=== PATIENT | female | born 2000 | race Caucasian/White ===

== ENCOUNTER 2022-10-30 19:18 | Emergency (ER) | payer OTHER, SELFPAY ==
[2022-10-30 19:46] VITALS: BP 121/89; PULSE 88; RESP 15; TEMP 36.6; O2SAT 100
--- NOTE | 2022-10-30 21:08 | ED.GENADULT ---
HPI - General Adult General Chief complaint: Wound/Laceration Stated complaint: l thumb lac Time Seen by Provider: 10/30/22 20:57 History of Present Illness HPI narrative: 22-year-old female presented the emergency department for evaluation of a laceration to her thumb. Patient reports that she was attempting to open a knife when she accidentally created a flap laceration to her left thumb. Patient's tetanus was not up-to-date. Related Data Allergies Allergy/AdvReac Type Severity Reaction Status Date / Time latex Allergy Hives Verified 10/30/22 19:20 Review of Systems Review of Systems: All systems reviewed & are unremarkable except as noted in HPI and below Exam Narrative: APPEARANCE: Well appearing, no pain, no distress, well-nourished. HEAD: normocephalic, atraumatic. EYES: PERRLA/EOMI, conjunctivae clear. NOSE: Normal no drainage NEURO: Alert. Cranial nerves II through XII intact. Grossly intact SKIN: Flap laceration to left thumb Course Course Emergency Course: 22-year-old female presented the ED for evaluation of a laceration to her left thumb. No evidence of tendon or arterial injury. Laceration was repaired as described above and tetanus was updated. Vital Signs Vital signs: Vital Signs Temperature 97.9 F 10/30/22 19:46 Pulse Rate 88 10/30/22 19:46 Respiratory Rate 15 10/30/22 19:46 Blood Pressure 121/89 10/30/22 19:46 Pulse Oximetry 100 10/30/22 19:46 Oxygen Delivery Room Air 10/30/22 19:46 Temperature 97.9 F 10/30/22 19:46 Pulse Rate 80 10/30/22 21:57 Respiratory Rate 16 10/30/22 21:57 Blood Pressure 120/74 10/30/22 21:57 Pulse Oximetry 100 10/30/22 21:57 Oxygen Delivery Room Air 10/30/22 19:46 Procedures Laceration Laceration 1: Site: upper extremity Side (If applicable): right Size (cm): 2 Description: flap and irregular Depth: simple, single layer Local Anesthetic: lidocaine 1% Amount of anesthesia used (mL): 2 Pre-repair: wound explored, irrigated and irrigated extensively ====== Skin Level ====== Skin layer closed with: prolene Size (cm): 5-0 Number of sutures: 3 Technique: simple, interrupted ====== Subcutaneous Layer ====== ====== Muscle Layer ====== ====== Tendon Layer ====== Medical Decision Making Differential Diagnosis Differential Diagnosis: laceration, tendon injury. Arterial injury Vital Signs Vital Signs: Vital Signs Temperature 97.9 F 10/30/22 19:46 Pulse Rate 88 10/30/22 19:46 Respiratory Rate 15 10/30/22 19:46 Blood Pressure 121/89 10/30/22 19:46 Pulse Oximetry 100 10/30/22 19:46 Oxygen Delivery Room Air 10/30/22 19:46 Temperature 97.9 F 10/30/22 19:46 Pulse Rate 80 10/30/22 21:57 Respiratory Rate 16 10/30/22 21:57 Blood Pressure 120/74 10/30/22 21:57 Pulse Oximetry 100 10/30/22 21:57 Oxygen Delivery Room Air 10/30/22 19:46 Discharge Plan Discharge Clinical Impression: Laceration Patient Disposition: Home, Self-Care Condition: Stable Instructions: Antibiotic Form, Laceration (ED) Additional Instructions: Sutures need to be removed in 7 to 10 days. Wound care as directed. Have close follow-up with your primary care physician. Follow-up/Referrals: PHYSICIAN NOT ON STAFF,NONSTAFF [Primary Care Provider] -
[2022-10-30] MEDS: TETANUS,DIPHTHERIA,AC PERTUSSIS ADULT (0.5 ML) BOOSTRIX IM (21:48)
[2022-10-30] MEDS: LIDOCAINE HCL 1% LOCAL INJ 10 ML VIAL INFILTRATE (21:48)
[2022-10-30 21:57] VITALS: BP 120/74; PULSE 80; RESP 16; O2SAT 100
== END 2022-10-30 21:58 | disposition home or self-care (01) ==
PROVIDERS: Emergency Provider Emergency Medicine
DX: S61.012A Laceration without foreign body of left thumb without damage to nail, initial encounter (principal); W26.0XXA Contact with knife, initial encounter; Z23 Encounter for immunization
CPT/HCPCS: 12001; 90471; 90715; 99282

== ENCOUNTER 2024-09-08 12:44 | Outpatient (CLI) | payer OTHER, SELFPAY ==
--- OUTSIDE RECORDS SUMMARY | 2024-09-08 12:53 | XMS_ITS | Clinical Summary ---
Author Organization [facility] Address [address] [place] [address] Care Team Providers Care Senior Medical Technologist Name Role Phone Unknown, Notinfile Primary Care Provider Unavail able Mariela Mcintyre MD Unavailable [phone] Norris Palumbo MD Unavailable [phone] Allergies Active Allergy Reactions Criticality Noted Date Comments Latex Blisters High Nickel Rash Medium 08/13/2017 Medications ibuprofen (ADVIL,MOTRIN) 600 mg tablet every 6 hours. 6 Active acetaminophen (TYLENOL) 500 mg tablet Take 500 mg by mouth every 6 (six) hours as needed for pain Active Dasetta , 28, 0.5/0.75/1 mg- 35 mcg per tablet Take 1 tablet by mouth daily 1 Active oxyCODONE (ROXICODONE) 5 mg immediate release tabletIndicatio ns:Pain Take 1 tablet (5 mg total) by mouth every 4 (four) hours as needed for pain (for pain uncontrolled after taking tylenol and ibuprofen) 18 tablet 1 Active Additional Information Patient not taking.Reported on 07/16/2021 FLUoxetine (PROzac) 20 mg capsule Take by mouth daily 2 Active topiramate (TOPAMAX) 50 mg tablet Take 50 mg by mouth 2 (two) times a day 2 Active triamcinolone (KENALOG) 0.1 % creamIndication s:Hand, foot and mouth disease Apply to affected area 1-2 times daily as needed. Avoid face and groin. 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 Pain in extremity 07/15/2014 Arachnoid cyst 11/06/2011 Surgical History Surgery Date Site/Laterality Comments SACROILIAC JOINT INJECTION PATIENT HAD CORTIZONE @ L5-S1 DEROTATIONAL TIBIAL OSTEOTOMY 04/25/2015 HARDWARE REMOVAL 02/27/2016 02/27/16 repair of femoral shaft nonunion, removal of broken hardware right femur, 09/17/16 removal of screw, 08/01/17 femoral nail removal MYRINGOTOMY W/ TUBES OSH Medical History Medical History Date Comments Painful orthopaedic hardware Arachnoid cyst found incidental ly on head CT after headaches and syncopal episodes 07/20, seen by neurology, no further f/u needed Family History Medical History Relation Name Comments Arthritis Mother Family history of arthritis - (Added by TW Conv) Hip Problems Mother Hip problem - ( Added by TW Conv) Low Back Pain Mother Family history of low back pain - (Added by TW Conv) Relation Name Status Comments Mother Social History Tobacco Use Types Packs/Day Years Used Date Smoking Tobacco: Never Smokeless Tobacco: Never Comments No Sex and Gender Information Value Date Recorded Sex Assigned at Not on file Legal Sex Female 4:56 AM PRINCIPAL ACCOUNT CLERK Gender Identity Female 05/01/2018 10:26 AM PRINCIPAL ACCOUNT CLERK Sexual Orientation Not on file Obstetrics History Last Filed Vital Signs Vital Sign Reading Time Taken Comments Blood Pressure 114/60 05/11/2022 9:28 AM PRINCIPAL ACCOUNT CLERK Pulse 68 05/11/2022 9:28 AM PRINCIPAL ACCOUNT CLERK Temperature 36.7 C (98.1 F) 05/11/2022 9:28 AM PRINCIPAL ACCOUNT CLERK Respiratory Rate 20 05/11/2022 9:28 AM PRINCIPAL ACCOUNT CLERK Oxygen Saturation 99% 05/11/2022 9:28 AM PRINCIPAL ACCOUNT CLERK Inhaled Oxygen Concentration - - Weight 73 kg (161 lb) 05/11/2022 9:28 AM PRINCIPAL ACCOUNT CLERK Height 160 cm (5' 3) 05/11/2022 9:28 AM PRINCIPAL ACCOUNT CLERK Body Mass Index 28.52 05/11/2022 9:28 AM PRINCIPAL ACCOUNT CLERK Plan of Treatment Health Maintenance Due Date Last Done Comments Cervical Cancer Screening 1999 Depression Screening 1999 Hepatitis C Screening 1999 Varicella Vaccines (1 of 2 - 13+ 2-dose series) 07/11/2012 HPV Vaccines (1 - 3-dose series) 07/11/2014 Regular Well Visit/Exam 18-64 07/11/2017 Covid-19 Vaccine ( season) 2023 08/12/2020, 07/22/2020 Influenza Vaccine (Season Ended) 2024 04/08/2022, 12/19/2019, 02/25/2019, Additional history exists DTaP/Tdap/Td Vaccine (8 - Td or Tdap) 04/14/2034 04/14/2024, 12/23/2012, 10/05/2004, Additional history exists Hepatitis B Screening Completed 04/02/2001 , 1999, 1999 Pneumococcal vaccine <65 Aged Out No longer eligible based on patient's age to complete this topic Insurance [facility] CHO[facility] PLUS [facility] CHO[facility] [place] CHOICE [place] Advance Directives For more information, please contact: [phone] Documents on File Type Date Recorded Patient Forensic Accountant Expl anation ADVANCE DIRECTIVE 08/18/2020 8:08 AM ADVANCE DIRECTIVE 02/27/2018 3:21 PM ADVANCE DIRECTIVE 08/01/2017 12:45 PM ADVANCE DIRECTIVE 08/01/2017 Advance Di rective Checklist Care Teams Senior Medical Technologist Relationship Specialty Start Date End Date Unknown, Notinfile PCP - General 05/01/24 Mariela Mcintyre MD [address] [place] [id number] 05/01/24 Norris Palumbo MD [address] [address] Surgeon Orthopedic Surgery 08/18/20
--- OUTSIDE RECORDS SUMMARY | 2024-09-08 12:53 | XMS_ITS | Referral Summary ---
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 Pain in extremity 07/15/2014 Arachnoid cyst 11/06/2011 Social History Tobacco Use Types Packs/Day Years Used Date Smoking Tobacco: Never Smokeless Tobacco: Never Comments No Sex and Gender Information Value Date Recorded Sex Assigned at Not on file Legal Sex Female 4:56 AM PARTS EXPEDITER Gender Identity Female 05/01/2018 10:26 AM PARTS EXPEDITER Sexual Orientation Not on file Last Filed Vital Signs Vital Sign Reading Time Taken Comments Blood Pressure 114/60 05/11/2022 9:28 AM PARTS EXPEDITER Pulse 68 05/11/2022 9:28 AM PARTS EXPEDITER Temperature 36.7 C (98.1 F) 05/11/2022 9:28 AM PARTS EXPEDITER Respiratory Rate 20 05/11/2022 9:28 AM PARTS EXPEDITER Oxygen Saturation 99% 05/11/2022 9:28 AM PARTS EXPEDITER Inhaled Oxygen Concentration - - Weight 73 kg (161 lb) 05/11/2022 9:28 AM PARTS EXPEDITER Height 160 cm (5' 3) 05/11/2022 9:28 AM PARTS EXPEDITER Body Mass Index 28.52 05/11/2022 9:28 AM PARTS EXPEDITER Plan of Treatment Not on file Insurance [facility] CHO[facility] PLUS [facility] CHOICE PLUS CHOICE [place] [facility] Advance Directives For more information, please contact: [phone] Documents on File Type Date Recorded Patient Affirmative Action Specialist Expl anation ADVANCE DIRECTIVE 08/18/2020 8:08 AM ADVANCE DIRECTIVE 02/27/2018 3:21 PM ADVANCE DIRECTIVE 08/01/2017 12:45 PM ADVANCE DIRECTIVE 08/01/2017 Advance Di rective Checklist Care Teams Rollout Manager Relationship Specialty Start Date End Date Unknown, Notinfile PCP - General 05/01/24 Mariela Mcintyre MD [address] [place] [address] 05/01/24 Norris Palumbo MD [address] [address] Surgeon Orthopedic Surgery 08/18/20
--- OUTSIDE RECORDS SUMMARY | 2024-09-08 12:53 | XMS_ITS | Encounter Summary ---
Author Organization [facility] Address [address] [place] [address] Care Team Providers Care Continuing Education Director Name Role Phone Mariela Mcintyre MD Primary Care Provider [phone] MD Primary Care Provider + Encounter Details Date Type Department Care Team (Late Contact Info) Description 08/16/[address] 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 Gender Identity Female 06/04/2024 9:31 AM CDT Sexual Orientation Not on file documented as of this encounter Plan of Treatment Upcoming Encounters Date Type Department Care Team (Late Contact Info) Description 10/06/2024 9:00 AM CDT Office Visit [facility] Medical [facility] Multispecialty Care - [address], [address] [place] [phone] Victor Hugo Watkins MD [address] [place] [address] documented as of this encounter Visit Diagnoses Not on filedocumented in this encounter Care Teams Continuing Education Director Relationship Specialty Start Date End Date Mariela Mcintyre MD [address] [place] [address] PCP - General PEDIATRICS 09/15/18 04/13/[address] MD [address] [place] [address] PCP - General FAMILY PRACTICE 04/14/24 documented as of this encounter
--- OUTSIDE RECORDS SUMMARY | 2024-09-08 12:53 | XMS_ITS | Encounter Summary ---
Author Organization [facility] Address [address] [place] [address] Care Team Providers Care Service Agent Name Role Phone Devora Lane MD Primary Care Provider + Encounter Details Date Type Department Care Team (Latest Contact Info) Description 08/06/2024 Results Follow-Up [facility] Medical Group Family Medicine - [place] [address] [place] [address] MD [address] [place] [address] COMPREHENSIVE METABOLIC PANEL Social History Tobacco Use Types Packs/Day Years Used Date Smoking Tobacco: Never Passive Smoke Exposure: Never Smokeless Tobacco: Never Alcohol Use Standard Drinks/Week Comments Yes 0 (1 standard drink = 0.6 oz pur e alcohol) 2 drinks a month B1300 Health Literacy Answer Date Recor ded How often do you need to hav e someone help you when you read instructions, pamphlets, or other written material from your doctor or pharmacy? Never 06/04/2024 [facility] Utilities Answer Date Recorded In the past 12 months has e electric, gas, oil, or water company threatened to shut off services in your home? No 06/04/2024 Humiliation, Afraid, Rape, and Kick questionnair e Answer Date Recorded Within the last year, have y ou been afraid of your partner or ex-partner? No 06/04/2024 Within the last year, have y ou been humiliated or emotionally abused in other ways by your partner or ex-partner? No Within the last year, have y ou been kicked, hit, slapped, or otherwise physically hurt by your partner or ex-partner? No 06/04/2024 Within the last year, have y ou been raped or forced to have any kind of sexual activity by your partner or ex-partner? No 06/04/2024 Social Connection and Isolation Panel [NHANES] A nswer Date Recorded In a typical week, how many times do you talk on the phone with family, friends, or neighbors? Patient declined 06/04/2024 How often do you get togethe r with friends or relatives? Patient declined 06/04/2024 How often do you attend jainism or tenriism serv ices? Patient declined 06/04/2024 Do you belong to any clubs o r organizations such as jainism groups, unions, fraternal or athletic groups, or school groups? Patient declined 06/04/2024 How often do you attend meet ings of the clubs or organizations you belong to? Patient declined 06/04/2024 Are you , , di vorced, , never , or living with a partner? Patient declined 06/04/2024 AUDIT-C Answer Date Recorded Q1: How often do you have a drink containing alc ohol? Monthly or less 06/04/2024 Q2: How many drinks containi ng alcohol do you have on a typical day when you are drinking? 1 or 2 06/04/2024 Q3: How often do you have si x or more drinks on one occasion? Less than monthly 06/04/2024 Overall Financial Resource Strain (CARDIA) Answe r Date Recorded How hard is it for you to pa y for the very basics like food, housing, medical care, and heating? Not very hard 06/04/2024 PHQ-2 Answer Date Recorded Patient Health Questionnaire-2 Score 0 04/14/2024 [facility] Occupat ional Health - Occupational Stress Questionnaire Answer Date Recorded Do you feel stress - tense, restless, nervous, or anxious, or unable to sleep at night because your mind is troubled all the time - these days? Patient declined 06/04/2024 Exercise Vital Sign Answer Date Recorde d On average, how many days pe r week do you engage in moderate to strenuous exercise (like a brisk walk)? 3 days 06/04/2024 On average, how many minutes do you engage in exercise at this level? 30 min 06/04/2024 Hunger Vital Sign Answer Date Recorded Within the past 12 months, y ou worried that your food would run out before you got the money to buy more. Patient declined Within the past 12 months, t he food you bought just didn't last and you didn't have money to get more. Patient declined PRAPARE - Transportation Answer Date Re corded In the past 12 months, has l ack of transportation kept you from medical appointments or from getting medications? No 05/10 In the past 12 months, has l ack of transportation kept you from meetings, work, or from getting things needed for daily living? No 06/04/2024 Housing Stability Vital Sign Answer Zan e Recorded In the last 12 months, was t here a time when you were not able to pay the mortgage or rent on time? No 06/04/2024 In the past 12 months, how m any times have you moved where you were living? 0 06/04/2024 At any time in the past 12 m [facility], were you homeless or living in a residential (including now)? No 06/04/2024 Comments No Sex and Gender Information Value Date Recorded Sex Assigned at Female 06/03/2024 11:56 AM CDT Legal Sex Female 9:15 PM INTEGRATION SPECIALIST Gender Identity Female 06/04/2024 9:31 AM CDT Sexual Orientation Not on file documented as of this encounter Functional Status * Are you deaf or do you have serious difficulty hearing Answer Date of Assessment Author Status No 06/03/2024 9:00 PM CDT Berto Hackett RN Active * Are you blind or do you have serious difficulty seeing, even when wearing glasses? Answer Date of Assessment Author Status No 06/03/2024 9:00 PM CDT Berto Hackett RN Active * Do you have serious difficulty walking or climbing stairs? Answer Date of Assessment Author Status No 06/03/2024 9:00 PM CDT Berto Hackett RN Active * Do you have difficulty dressing or bathing? Answer Date of Assessment Author Status No 06/03/2024 9:00 PM CDT Berto Hackett RN Active * Because of a physical, mental, or emotional condition, do you have difficulty doing errands alone such as visiting a doctor's office or shopping? Answer Date of Assessment Author Status No 06/03/2024 9:00 PM CDT Berto Hackett RN Active documented as of this encounter Mental Status * Because of a physical, mental, or emotional condition, do you have serious difficulty concentrating, remembering, or making decisions? Answer Entry Date Author Status No 06/03/2024 9:00 PM CDT Berto Hackett RN Active documented in this encounter Plan of Treatment Upcoming Encounters Date Type Department Care Team (Late st Contact Info) Description 10/06/2024 9:00 AM CDT Office Visit [facility] Medical Group Multispecialty Care - [facility] [address] [facility], [address] [place] [address] Victor Hugo Watkins MD [address] [place] [address] documented as of this encounter Visit Diagnoses Not on filedocumented in this encounter Care Teams Service Agent Relationship Specialty Start Date End Date Devora Lane MD [address] [place] [address] PCP - General FAMILY PRACTICE 04/14/24 documented as of this encounter
--- OUTSIDE RECORDS SUMMARY | 2024-09-08 12:53 | XMS_ITS | Encounter Summary ---
Author Organization [facility] Address [address] [place] [address] Care Team Providers Care Wastewater Treatment Plant Attendant Name Role Phone Devora Lane MD Primary Care Provider + Encounter Details Date Type Department Care Team (Late st Contact Info) Description 04/20/2024 MyChart Message Enc [facility] Medical Group Family Medicine - [place] [address] [place] [phone] MD [address] [place] [phone] Labs Ordered from Orthopedic Surgeon Social History Tobacco Use Types Packs/Day Years Used Date Smoking Tobacco: Never Passive Smoke Exposure: Never Smokeless Tobacco: Never Alcohol Use Standard Drinks/Week Comments Yes 0 (1 standard drink = 0.6 oz pur e alcohol) 2 drinks a month PHQ-2 Answer Date Recorded Patient Health Questionnaire-2 Score 0 04/14/2024 Comments No Sex and Gender Information Value Date Recorded Sex Assigned at Female 06/03/2024 11:56 AM CDT Legal Sex Female 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 RVISOR FEED HOUSE documented in this encounter Plan of Treatment Upcoming Encounters Date Type Department Care Team (Late st Contact Info) Description 10/06/2024 9:00 AM CDT Office Visit [facility] Medical Group Multispecialty Care - [facility] [address] [facility], [address] [place] [phone] Victor Hugo Watkins MD [address] [place] [address] documented as of this encounter Visit Diagnoses Not on filedocumented in this encounter Care Teams Wastewater Treatment Plant Attendant Relationship Specialty Start Date End Date Devora Lane MD [address] [place] [address] PCP - General FAMILY PRACTICE 04/14/24 documented as of this encounter
--- OUTSIDE RECORDS SUMMARY | 2024-09-08 12:53 | XMS_ITS | Encounter Summary ---
Author Organization [facility] Address [address] [place] [address] Care Team Providers Care Client Services Representative Name Role Phone Devora Lane MD Primary Care Provider + Encounter Details Date Type Department Care Team (Late st Contact Info) Description 07/17/2024 MyChart Message Enc [facility] Medical Group Family Medicine - [place] [address] [place] [phone] MD [address] [place] [phone] Follow up After ER Visit Social History Tobacco Use Types Packs/Day Years [...] from your doctor or pharmacy? Never 06/04/2024 [facility] Utilities Answer Date Recorded In the past 12 months has e [employer], gas, oil, or water [employer] threatened to shut off services in your [...] declined 06/04/2024 How often do you attend confucianism or tenriism serv ices? Patient declined 06/04/2024 Do you belong to any clubs o r organizations such as confucianism groups, unions, fraternal or athletic groups, or [...] Recorded Patient Health Questionnaire-2 Score 0 04/14/2024 [facility] of Occupat ional Health - Occupational Stress [...] any time in the past 12 m [facility], were you homeless or living in a long-term (including now)? No 06/04/2024 Comments No Sex and Gender Information Value Date Recorded Sex Assigned at Female 06/03/2024 11:56 AM CDT Legal Sex Female 9:15 PM TECHNOLOGY MANAGER Gender Identity Female 06/04/2024 9:31 AM CDT [...] Description 10/06/2024 9:00 AM CDT Office Visit [facility] Medical Group Multispecialty Care - [facility] [address] [facility], [address] [place] [address] Victor Hugo Watkins MD [address] [place] [address] documented as of this encounter Visit Diagnoses Not on filedocumented in this encounter Care Teams Client Services Representative Relationship Specialty Start Date End Date Devora Lane MD [address] [place] [address] PCP - General FAMILY PRACTICE 04/14/24 documented as of this encounter
--- OUTSIDE RECORDS SUMMARY | 2024-09-08 12:53 | XMS_ITS | Clinical Summary ---
Author Organization [facility] Address [facility] [place] [address] Care Team Providers Care Chemic Mangler Name Role Phone Devora Lane MD Primary Care Provider + Allergies Active Allergy Reactions Criticality Noted Date Comments Latex Hives 09/21/2022 Nickel Rash Medium 08/13/2017 Medications Vit-Fe Fumarate-FA ( VITAMIN OR) Take 1 tablet by mouth daily. 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 MIL is physical therapist. Migraines 04/14/2024 Overview (04/14/2024): Without aura. Seeing neurology but her neurologist is retiring.. About twice a month. Quilipta. Still deciding if its working. Topiramate and Nurtec were not effective for her in the past. Assessment & Plan (04/14/2024 3:46 PM CORDUROY CUTTER OPERATOR): Not controlled. Would like to see a new neurologist. Referral entered. Encounters Date Type Department Care Team Description 08/06/2024 Results Follow-Up [address] [place] [address] MD COMPREHENSIVE METABOLIC PANEL 07/21/2024 9:50 AM CDT Office Visit [address] [place] [address] MD Abdominal Pain (Patient was seen in [facility] ER on 07/16/24 for abdominal pain and was told to follow up here. ) 07/21/2024 Travel 07/17/2024 MyChart Message Enc [address] [place] [address] MD Follow up After ER Visit 07/16/2024 7:05 PM CDT - 07/16/2024 10:12 PM CDT Emergency [facility] [place] [address] Amna David PA Abdominal Pain Discharge Disposition: Home or Self Care (Routine Discharge) 07/16/2024 Travel 06/11/2024 11:10 AM CDT Office Visit [address] [place] [address] MD [facility] 06/11/2024 Travel from Last 3 Months Immunizations Immunization Administration Dates Next Due Afluria 36 MONTHS+ (Prefille d Syringe IIV4) 02/25/2019 Dtap (Acel-Immune) 10/05/2004, 2,03/27/2000,12/09,1999 HPV GARDASIL 9-VALENT 02/27/2021,12/22/2020,10/09 Hib-Hepatitis B (Comvax) 04/02/2001,1999,0 1999 Influenza Adult (Generic) 04/08/2022,12/2019,02/25/2019,02/09,12/18/2016 MENINGOCOCCAL A C Y&W-135 oligosaccharide (MENVEO) 10/12/2013 MMR (MMRII) 10/05/2004,04/02/2001 Meningococcal (Menactra) 10/26/2016 PFIZER COVID-19 (ORIGINAL FO RMULATION, PURPLE CAP) mRNA, LNP-S, PF, 30 MCG/0.3 ML DOSE 08/12/2020,07/22/2020 Polio IPV (Ipol) 10/05/2004, 2,1999,09/08 Tdap (Adacel) 04/14/2024 Tdap (Generic) 12/23/2012 Family History Medical History Relation Comments Cancer Father Non-hodgkins Lym phoma Hypertension Father Alcohol Abuse Maternal Grandfather Depression Mother Heart Disease Paternal Grandfather Cancer Paternal Grandmother Ovarian Can cer Relation Status Comments Brother 1 Alive Brother 2 Alive Brother 3 Alive Brother 4 Alive Father Alive Maternal Grandfather Mother Alive Paternal Grandfather Paternal Grandmother Sister Alive Social History Tobacco Use Types Packs/Day Years Used Date Smoking Tobacco: Never Passive Smoke Exposure: Never Smokeless Tobacco: Never Tobacco Cessation:Counseling Given: No Alcohol Use Standard Drinks/Week Comments Yes 0 (1 standard drink = 0.6 oz pur e alcohol) 2 drinks a month B1300 Health Literacy Answer Date Recor ded How often do you need to hav e someone help you when you read instructions, pamphlets, or other written material from your doctor or pharmacy? Never 06/04/2024 [facility] Utilities Answer Date Recorded In the past 12 months has e [employer], oil, or water [employer] threatened to shut off services in your [...] declined 06/04/2024 How often do you attend scientology or orthodoxy serv ices? Patient declined 06/04/2024 Do you belong to any clubs o r organizations such as scientology groups, unions, fraternal or athletic groups, or [...] Recorded Patient Health Questionnaire-2 Score 0 04/14/2024 [facility] - Occupational Stress [...] any time in the past 12 m [facility], were you homeless or living in a senior living (including now)? No 06/04/2024 Comments No Sex and Gender Information Value Date Recorded Sex Assigned at Female 06/03/2024 11:56 AM CDT Legal Sex Female 9:15 PM CORDUROY CUTTER OPERATOR Gender Identity Female 06/04/2024 9:31 AM CDT Sexual Orientation Not on file Last Filed Vital Signs Vital Sign Reading Time Taken Comments Blood Pressure 113/81 07/21/2024 9:53 AM CDT Pulse 93 07/21/2024 9:53 AM CDT Temperature 36.4 C (97.5 F) 07/21/2024 9:53 AM CDT Respiratory Rate 16 07/16/2024 10:10 PM CDT Oxygen Saturation 100% 07/21/2024 9:53 AM CDT Inhaled Oxygen Concentration - - Weight 75.8 kg (167 lb) 07/21/2024 9:53 AM CDT Height 160 cm (5' 3) 07/21/2024 9:53 AM CDT Body Mass Index 29.58 07/21/2024 9:53 AM CDT Plan of Treatment Upcoming Encounters Date Type Department Care Team (Late st Contact Info) Description 10/06/2024 9:00 AM CDT Office Visit [facility] Multispecialty Care - [address] [place] [address] Victor Hugo Watkins MD [address] [place] [address] Health Maintenance Due Date Last Done Comments Cervical Cancer Screening Pap Smear (Age 21 to 29) Every 3 Years 1999 Cervical Cancer Screening 1999 Hepatitis C 07/11/2017 HPV Vaccines (3 - 3-dose series) 05/22/2021 02/27/2021, 12/22/2020, 10/20/2020 COVID-19 Vaccine ( season) 2023 08/12/2020, 07/22/2020 Annual Physical 04/14/2025 04/14/2024 DTaP, Tdap and Td Vaccines (8 - Td or Tdap) 04/14/2034 04/14/2024, 12/23/2012, 10/05/2004, Additional history exists Hepatitis B Vaccines Completed 04/02/2001, 1999, 1999 Meningococcal Vaccine Completed 10/26/2016, 014 PHQ-2 (Physician Hernandez) Completed 04/14/2024 Meningococcal B Vaccine Aged Out No l onger eligible based on patient's age to complete this topic Pneumococcal Vaccine: Pediatrics (0 to 5 Years) and At-Risk Patients (6 to 49 Years) Aged Out No longer eligible based on patient's age to complete this topic RSV Immunizations Under 20 Months Aged Out No longer eligible based on patient's age to complete this topic Procedures Procedure Name Priority Date/Time Associated Diagnosis Comments COMPREHENSIVE METABOLIC PANEL Today 08/05/2024 10:41 AM CDT Elevated liver enzymes CT ABD+PEL W CON STAT 07/16/2024 9:02 PM CDT POCT URINE (BACK OFFICE) STAT 07/16/2024 7:16 PM CDT HC URINALYSIS AUTO W/O MICRO STAT 07/16/2024 7:14 PM CDT LIPASE STAT 07/16/2024 7:14 PM CDT COMPREHENSIVE METABOLIC PANEL STAT 07/16/2024 7:14 PM CDT CBC W/DIFF AUTOMATED STAT 07/16/2024 7:14 PM CDT from Last 3 Months Results * COMPREHENSIVE METABOLIC PANEL (08/05/2024 10:41 AM CDT) Only the most recent of2 resultswithin the time period is included. GLUCOSE 92 70 - 99 mg/dL [facility] BUN 11 6 - 20 mg/dL [facility] CREATININE S/P/B 0.77 0.57 - 1.00 mg/dL [facility] GFR ESTIMATE 110 >59 mL/min/1.7 3 [facility] 1 BUN CREATININE RATIO 14 9 - 23 [facility] 1 SODIUM S/P/B 137 134 - 144 mmol/L [facility] 1 POTASSIUM S/P/B 4.4 3.5 - 5.2 mmol/L [facility] 1 CHLORIDE S/P/B 102 96 - 106 mmol/L [facility] 1 CO2 21 20 - 29 mmol/L [facility] 1 CALCIUM S/P/B 9.7 8.7 - 10.2 mg/dL [facility] 1 TOTAL PROTEIN S/P/B 6.8 6.0 - 8.5 g/dL [facility] 1 ALBUMIN S/P/B 4.5 4.0 - 5.0 g/dL [facility] 1 GLOBULIN 2.3 1.5 - 4.5 g/dL [facility] 1 BILIRUBIN TOTAL S/P/B 0.7 0.0 - 1.2 mg/dL [facility] 1 ALKALINE PHOSPHATASE S/P/B 90 44 - 121 IU/L [facility] 1 AST 15 0 - 40 IU/L [facility] 1 ALT 12 0 - 32 IU/L [facility] 1 08/05/2024 10:4 1 AM CDT 08/05/2024 Narrative [facility] - 08/06/2024 1:06 AM CDT Performed at: 01 - [facility] [address], [place], [place] [id number] Surgical Assist: Franck Levine PhD, Phone: [phone] us Devora Lane MD LABORATORY Final Re sult [facility] [address] [place] [address] [facility] 1 * CT ABD+PEL W IV CON ONLY (07/16/2024 9:02 PM CDT) Anatomical Region Laterality Modality Abdomen Computed Tomogra phy 07/16/2024 9:02 PM CDT Impressions 07/16/2024 9:13 PM CDT IMPRESSION: 1. Appendectomy since the comparison exam. Referred By: Interpreted By: Simon Roque MD, 07/16/2024 9:02 PM Narrative 07/16/2024 9:13 PM CDT [facility] [address] [place], [place] [address] EXAM: CT ABD+PEL W CON DATE: 07/16/2024 COMPARISON: 06/03/2024 INDICATION: Stomach pain last night. Appendectomy after the prior CT. TECHNIQUE: Postcontrast imaging with 100 cc intravenous Isovue-370 left wrist. A dose lowering technique was used for this procedure, which may include, but is not limited to, dose reduction technique, automated exposure control, iterative reconstruction, ALARA (As Low As Reasonably Achievable), or Image Gently techniques. FINDINGS: Less than 4 mm pleural-based pulmonary nodule in the right middle lobe. No change. No follow-up necessary. Normal enhancement of the liver, spleen, adrenal glands, and pancreas. Partially contracted gallbladder is normal. Normal enhancement of the kidneys. No obstruction. Normal urinary bladder. Normal enhancement of the uterus. Multiple follicles in the ovaries. No free fluid. Normal appearance of the stomach and small bowel. Moderate stool volume in the right colon. Appendectomy changes. There are multiple lymph nodes in the right lower quadrant and mesentery. These have decreased in size and number. Minimal ill-defined densities in the fat lateral to the right psoas. No fluid collection. No acute bone findings. Partially visualized tract from a previous right femoral edelmira. Fixation screw remains. Procedure Note Simon Roque MD - 07/16/2024 [facility] [address] [place], [place] [address] EXAM: CT ABD+PEL W CON DATE: 07/16/2024 COMPARISON: 06/03/2024 INDICATION: Stomach pain last night. Appendectomy after the prior CT. TECHNIQUE: Postcontrast imaging with 100 cc intravenous Isovue-370 leftwrist. A dose lowering technique was used for this procedure, which may include,but is not limited to, dose reduction technique, automated exposurecontrol, iterative reconstruction, ALARA (As Low As ReasonablyAchievable), or Image Gently techniques. FINDINGS: Less than 4 mm pleural-based pulmonary nodule in the rightmiddle lobe. No change. No follow-up necessary. Normal enhancement of the liver, spleen, adrenal glands, and pancreas.Partially contracted gallbladder is normal. Normal enhancement of the kidneys. No obstruction. Normal urinarybladder. Normal enhancement of the uterus. Multiple follicles in theovaries. No free fluid. Normal appearance of the stomach and small bowel. Moderate stool volumein the right colon. Appendectomy changes. There are multiple lymph nodes in the right lower quadrant and mesentery.These have decreased in size and number. Minimal ill-defined densities inthe fat lateral to the right psoas. No fluid collection. No acute bone findings. Partially visualized tract from a previous rightfemoral edelmira. Fixation screw remains. IMPRESSION: 1. Appendectomy since the comparison exam. Referred By: Interpreted By: Simon Roque MD, 07/16/2024 9:[address] Final Result * POCT urine (07/16/2024 7:16 PM CDT) URINE HCG TEST NEGATIVE Internal Control: VALID 07/16/2024 7:16 PM CDT us Osman Crystal PA-C POINT OF CARE TEST ORDERABL ES Final Result * URINALYSIS (07/16/2024 7:14 PM CDT) SPECIMEN TYPE URINE CLEAN CATCH 07/16/2024 7:[address] [facility] COLOR (U) COLORLESS 07/16/2024 7:[address] [facility] TRANSPARENCY CLEAR 07/16/2024 7:[address] [facility] SPECIFIC GRAVITY (U) 1.009 1.001 - 1.030 07/16/2024 7:[address] [facility] U PH 7.0 5.0 - 9.0 07/16/2024 7:[address] [facility] LEUKOCYTES (U) NEGATIVE NEGATIVE 07/16/2024 7:[address] [facility] NITRITES NEGATIVE NEGATIVE 07/16/2024 7:[address] [facility] PROTEIN RANDOM (U) NEGATIVE <30 MG/DL 07/16/2024 7:[address] [facility] GLUCOSE (U) NORMAL NORMAL MG/DL 07/16/2024 7:[address] [facility] KETONES MG/DL (U) NEGATIVE NEGATIVE MG/DL 07/16/2024 7:[address] [facility] UROBILINOGEN NORMAL NORMAL MG/DL 07/16/2024 7:[address] [facility] BILIRUBIN (U) NEGATIVE NEGATIVE MG/DL 07/16/2024 7:[address] [facility] BLOOD (U) NEGATIVE NEGATIVE 07/16/2024 7:[address] [facility] URINE SPECIMEN OBTAINED BY CLEAN CATCH PROCEDURE / Unknown 07/16/2024 7:14 PM CDT us Osman Crystal PA-C URINE ORDERABLES Final Resu lt [facility] [address] [place] [address], * CBC W/DIFF AUTOMATED (07/16/2024 7:14 PM CDT) WBC 6.44 4.5 - 11.0 x10'3/uL 07/16/2024 7:[address] [facility] RBC 4.62 4.20 - 5.40 x10'6/uL 07/16/2024 7:[address] [facility] HGB 13.7 12.0 - 16.0 G/DL 07/16/2024 7:[address] [facility] HCT 40.6 38.0 - 48.0 % 07/16/2024 7:[address] [facility] MCV 87.9 81.0 - 99.0 FL 07/16/2024 7:[address] [facility] MCH 29.7 27.0 - 31.0 PG 07/16/2024 7:[address] [facility] MCHC 33.7 32.0 - 36.0 G/DL 07/16/2024 7:[address] [facility] RDW 12.4 11.5 - 14.5 % 07/16/2024 7:[address] [facility] PLT 313 130 - 400 x10'3/uL 07/16/2024 7:[address] [facility] MPV 9.3 9.3 - 12.2 FL 07/16/2024 7:[address] [facility] DIFFERENTIAL TYPE AUTOMATED DIFFERENTIAL 07/16/2024 7:[address] [facility] NEUTROPHILS % 47.3 % 07/16/2024 7:[address] [facility] LYMPHOCYTES % 42.4 % 07/16/2024 7:[address] [facility] MONOCYTES % 7.0 % 07/16/2024 7:[address] [facility] EOSINOPHILS 2.0 % 07/16/2024 7:[address] [facility] BASOPHILS 1.1 % 07/16/2024 7:[address] [facility] IMMATURE GRANS % 0.2 % 07/17/19 7:[address] [facility] ABS. NEUTROPHILS 3.05 1.80 - 7.70 x10'3/uL 07/16/2024 7:[address] [facility] ABS. LYMPHOCYTES 2.73 1.00 - 4.80 x10'3/uL 07/16/2024 7:[address] [facility] ABS. MONOCYTES 0.45 0.24 - 0.86 x10'3/uL 07/16/2024 7:[address] [facility] ABS. EOSINOPHILS 0.13 0.04 - 0.36 x10'3/uL 07/16/2024 7:[address] [facility] ABS. BASOPHILS 0.07 0.01 - 0.08 x10'3/uL 07/16/2024 7:[address] [facility] ABS. IMMATURE GRANULOCYTES 0.01 0.00 - 0.49 x10'3/uL 07/16/2024 7:[address] [facility] 07/16/2024 7:14 PM CDT Osman Crystal PA-C LABORATORY Final Resul t [facility] [address] [place] [address], [place] [phone] * LIPASE (07/16/2024 7:14 PM CDT) LIPASE 44 13 - 75 UNITS/L 07/16/2024 7:[address] [facility] 07/16/2024 7:14 PM CDT Osman Crystal PA-C LABORATORY Final Resul t Performing Organization Address City/[facility]/ZIP Co de Phone Number [facility] [address] [place] [address], [place] [phone] from Last [address] [id number] [facility] Advance Directives * Full Code (Latest Code Status on File) Date Activated Date Inactivated Comments 06/03/2024 7:26 PM 06/04/2024 12:29 PM Care Teams Chemic Mangler Relationship Specialty Start Date End Date Devora Lane MD [address] [place] [address] PCP - General FAMILY PRACTICE 04/14/24
[2024-09-08 14:38] LABS: Beta HCG Quantitative 21.33 mIU/ML
[2024-09-09 02:59] LABS: Progesterone. 20.4 ng/mL
== END 2024-09-08 12:45 | disposition home or self-care (01) ==
PROVIDERS: PCP Student in an Organized Health Care Education/Training Program; Visit Provider Obstetrics & Gynecology
DX: O09.299 Supervision of pregnancy with other poor reproductive or obstetric history, unspecified trimester (principal); Z3A.00 Weeks of gestation of pregnancy not specified
CPT/HCPCS: 36415; 84144; 84702

== ENCOUNTER 2024-09-10 12:53 | Outpatient (CLI) | payer OTHER, SELFPAY ==
--- OUTSIDE RECORDS SUMMARY | 2024-09-10 12:56 | XMS_ITS | Encounter Summary ---
Author Organization [facility] Address [address] [place] [address] Care Team Providers Care Greeting Card Editor Name Role Phone Mariela Mcintyre MD Primary Care Provider [phone] MD Primary Care Provider + Encounter Details Date Type Department Care Team (Late Contact Info) Description 08/16/[address] [facility] [address] [place] [address] , Generic Conversion, Social History Tobacco Use Types Packs/Day Years Used Date Smoking Tobacco: Never Assessed Comments Unknown Sex and Gender Information Value Date Recorded Sex Assigned at Female 06/03/2024 11:56 AM CDT Legal Sex Female 9:15 PM PLASMA CUTTING MACHINE OPERATOR Gender Identity Female 06/04/2024 9:31 AM CDT Sexual Orientation Not on file documented as of this encounter Plan of Treatment Upcoming Encounters Date Type Department Care Team (Late Contact Info) Description 10/06/2024 9:00 AM CDT Office Visit [facility] Medical Group Multispecialty Care - [address], [address] [place] [phone] Victor Hugo Watkins MD [address] [place] [phone] documented as of this encounter Visit Diagnoses Not on filedocumented in this encounter Care Teams Greeting Card Editor Relationship Specialty Start Date End Date Mariela Mcintyre MD [address] [place] [address] PCP - General PEDIATRICS 09/15/18 04/13/[address] MD [address] [place] [address] PCP - General FAMILY PRACTICE 04/14/24 documented as of this encounter
--- OUTSIDE RECORDS SUMMARY | 2024-09-10 12:57 | XMS_ITS | Clinical Summary ---
Author Organization [facility] Address [facility] [place] [address] Care Team Providers Care Helmet Coverer Name Role Phone Devora Lane MD Primary Care Provider + Allergies Active Allergy Reactions Criticality Noted Date Comments Latex Hives 09/21/2022 Nickel Rash Medium 08/13/2017 Medications Vit-Fe Fumarate-FA ( VITAMIN OR) Take 1 tablet by mouth daily. 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 MIL is physical therapist. Migraines 04/14/2024 Overview (04/14/2024): Without aura. Seeing neurology but her neurologist is retiring.. About twice a month. Quilipta. Still deciding if its working. Topiramate and Nurtec were not effective for her in the past. Assessment & Plan (04/14/2024 3:46 PM ENTERPRISE SOFTWARE ENGINEER): Not controlled. Would like to see a new neurologist. Referral entered. Encounters Date Type Department Care Team Description 08/06/2024 Results Follow-Up [address] [place] [address] MD COMPREHENSIVE METABOLIC PANEL 07/21/2024 9:50 AM CDT Office Visit [address] [place] [address] MD Abdominal Pain (Patient was seen in [facility] ER on 07/16/24 for abdominal pain and was told to follow up here. ) 07/21/2024 Travel 07/17/2024 MyChart Message Enc [address] [place] [address] MD Follow up After ER Visit 07/16/2024 7:05 PM CDT - 07/16/2024 10:12 PM CDT Emergency [facility] [place] [address] Amna David PA Abdominal Pain Discharge Disposition: Home or Self Care (Routine Discharge) 07/16/2024 Travel 06/11/2024 11:10 AM CDT Office Visit [address] [place] [address] MD [facility] 06/11/2024 Travel from Last 3 Months Immunizations [...] from your doctor or pharmacy? Never 06/04/2024 [facility] Utilities Answer Date Recorded In the past 12 months has e [employer], oil, or water [employer] threatened to shut off services in your [...] declined 06/04/2024 How often do you attend shinto or sikh serv ices? Patient declined 06/04/2024 Do you belong to any clubs o r organizations such as shinto groups, unions, fraternal or athletic groups, or [...] Recorded Patient Health Questionnaire-2 Score 0 04/14/2024 [facility] of Occupat ional Health - [...] any time in the past 12 m [facility], were you homeless or living in a fpc (including now)? No 06/04/2024 Comments No Sex and Gender Information Value Date Recorded Sex Assigned at Female 06/03/2024 11:56 AM CDT Legal Sex Female 9:15 PM ENTERPRISE SOFTWARE ENGINEER Gender Identity Female 06/04/2024 9:31 AM CDT [...] Description 10/06/2024 9:00 AM CDT Office Visit [facility] Medical Group Multispecialty Care - [address] [place] [address] Victor Hugo Watkins MD [address] [place] [address] Health Maintenance Due Date Last Done Comments [...] Meningococcal Vaccine Completed 10/26/2016, 014 PHQ-2 (Physician [place]) Completed 04/14/2024 Meningococcal B Vaccine Aged Out [...] AM CDT Performed at: 01 - [facility] [address], [place], [place] [id number] Distillation Operator: Franck Levine PhD, Phone: [phone] us Devora Lane MD LABORATORY Final Re sult [facility] [address] [place] [address] [facility] 1 * CT ABD+PEL W IV CON ONLY (07/16/2024 9:02 PM CDT) Anatomical Region Laterality Modality Abdomen Computed Tomogra phy 07/16/2024 9:02 PM CDT Impressions 07/16/2024 9:13 PM CDT IMPRESSION: 1. Appendectomy since the comparison exam. Referred By: Interpreted By: Simon Roque MD, 07/16/2024 9:02 PM Narrative 07/16/2024 9:13 PM CDT [facility] [address] [place], [place] [address] EXAM: CT ABD+PEL W CON DATE: 07/16/2024 [...] Procedure Note Simon Roque MD - 07/16/2024 [facility] [address] [place], [place] [address] EXAM: CT ABD+PEL W CON DATE: 07/16/2024 [...] URINE CLEAN CATCH 07/16/2024 7:16 PM CDT [facility] COLOR (U) COLORLESS 07/16/2024 7:57 PM CDT [facility] TRANSPARENCY CLEAR 07/16/2024 7:57 PM CDT [facility] SPECIFIC GRAVITY (U) 1.009 1.001 - 1.030 07/16/2024 7:57 PM CDT [facility] U PH 7.0 5.0 - 9.0 07/16/2024 7:57 PM CDT [facility] LEUKOCYTES (U) NEGATIVE NEGATIVE 07/16/2024 7:57 PM CDT [facility] NITRITES NEGATIVE NEGATIVE 07/16/2024 7:57 PM CDT [facility] PROTEIN RANDOM (U) NEGATIVE <30 MG/DL 07/16/2024 7:57 PM CDT [facility] GLUCOSE (U) NORMAL NORMAL MG/DL 07/16/2024 7:57 PM CDT [facility] KETONES MG/DL (U) NEGATIVE NEGATIVE MG/DL 07/16/2024 7:57 PM CDT [facility] UROBILINOGEN NORMAL NORMAL MG/DL 07/16/2024 7:57 PM CDT [facility] BILIRUBIN (U) NEGATIVE NEGATIVE MG/DL 07/16/2024 7:57 PM CDT [facility] BLOOD (U) NEGATIVE NEGATIVE 07/16/2024 7:57 PM CDT [facility] URINE SPECIMEN OBTAINED BY CLEAN CATCH PROCEDURE / Unknown 07/16/2024 7:14 PM CDT us Osman Crystal PA-C URINE ORDERABLES Final Resu lt [facility] [address] [place] [address], * CBC W/DIFF AUTOMATED (07/16/2024 7:14 PM CDT) WBC 6.44 4.5 - 11.0 x10'3/uL 07/16/2024 7:26 PM CDT [facility] RBC 4.62 4.20 - 5.40 x10'6/uL 07/16/2024 7:26 PM CDT [facility] HGB 13.7 12.0 - 16.0 G/DL 07/16/2024 7:26 PM CDT [facility] HCT 40.6 38.0 - 48.0 % 07/16/2024 7:26 PM CDT [facility] MCV 87.9 81.0 - 99.0 FL 07/16/2024 7:26 PM CDT [facility] MCH 29.7 27.0 - 31.0 PG 07/16/2024 7:26 PM CDT [facility] MCHC 33.7 32.0 - 36.0 G/DL 07/16/2024 7:26 PM CDT [facility] RDW 12.4 11.5 - 14.5 % 07/16/2024 7:26 PM CDT [facility] PLT 313 130 - 400 x10'3/uL 07/16/2024 7:26 PM CDT [facility] MPV 9.3 9.3 - 12.2 FL 07/16/2024 7:26 PM CDT [facility] DIFFERENTIAL TYPE AUTOMATED DIFFERENTIAL 07/16/2024 7:26 PM CDT [facility] NEUTROPHILS % 47.3 % 07/16/2024 7:26 PM CDT [facility] LYMPHOCYTES % 42.4 % 07/16/2024 7:26 PM CDT [facility] MONOCYTES % 7.0 % 07/16/2024 7:26 PM CDT [facility] EOSINOPHILS 2.0 % 07/16/2024 7:26 PM CDT [facility] BASOPHILS 1.1 % 07/16/2024 7:26 PM CDT [facility] IMMATURE GRANS % 0.2 % 07/17/19 7:26 PM CDT [facility] ABS. NEUTROPHILS 3.05 1.80 - 7.70 x10'3/uL 07/16/2024 7:26 PM CDT [facility] ABS. LYMPHOCYTES 2.73 1.00 - 4.80 x10'3/uL 07/16/2024 7:26 PM CDT [facility] ABS. MONOCYTES 0.45 0.24 - 0.86 x10'3/uL 07/16/2024 7:26 PM CDT [facility] ABS. EOSINOPHILS 0.13 0.04 - 0.36 x10'3/uL 07/16/2024 7:26 PM CDT [facility] ABS. BASOPHILS 0.07 0.01 - 0.08 x10'3/uL 07/16/2024 7:26 PM T [facility] ABS. IMMATURE GRANULOCYTES 0.01 0.00 - 0.49 x10'3/uL 07/16/2024 7:26 PM T [facility] 07/16/2024 7:14 PM CDT Osman Crystal PA-C LABORATORY Final Resul t [facility] [address] [place] [address], [place] [phone] * LIPASE (07/16/2024 7:14 PM CDT) LIPASE 44 13 - 75 UNITS/L 07/16/2024 7:47 PM CDT [facility] 07/16/2024 7:14 PM CDT Osman Crystal PA-C LABORATORY Final Resul t Performing Organization Address City/[facility]/ZIP Co de Phone Number [facility] [address] [place] [address], [place] [phone] from Last [address] [place] [address] [id number] [facility] Advance Directives * Full Code (Latest Code Status on File) Date Activated Date Inactivated Comments 06/03/2024 7:26 PM 06/04/2024 12:29 PM Care Teams Helmet Coverer Relationship Specialty Start Date End Date Devora Lane MD [address] [place] [address] PCP - General FAMILY PRACTICE 04/14/24
--- OUTSIDE RECORDS SUMMARY | 2024-09-10 12:57 | XMS_ITS | Encounter Summary ---
Author Organization [facility] Address [address] [place] [address] Care Team Providers Care Corrugator Operator Name Role Phone Devora Lane MD Primary Care Provider + Encounter Details Date Type Department Care Team (Latest Contact Info) Description 08/06/2024 Results Follow-Up [facility] Medical Group Family Medicine - [place] [address] [place] [address] MD [address] [place] [address] COMPREHENSIVE METABOLIC PANEL Social History Tobacco [...] from your doctor or pharmacy? Never 06/04/2024 [facility] Utilities Answer Date Recorded In [...] declined 06/04/2024 How often do you attend roman catholic or latter-day serv ices? Patient declined 06/04/2024 Do you belong to any clubs o r organizations such as roman catholic groups, unions, fraternal or athletic groups, or [...] Recorded Patient Health Questionnaire-2 Score 0 04/14/2024 [facility] of Occupat ional Health - Occupational Stress [...] any time in the past 12 m [facility], were you homeless or living in a mcfp (including now)? 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
--- OUTSIDE RECORDS SUMMARY | 2024-09-10 12:57 | XMS_ITS | Data Portability ---
Author Organization [facility], [address] [facility] ([place]) Address [address] [place] [address] Care Team Providers Care Talcer Name Role Phone [place] COPELAND Primary Care Provider [phone] Assessment Encounter Date Assessment Date Assessment LastModified by Organization Details LastModified Time 02/14/2024 02/14/2024 In summary, patient s migraines continue to be problematic for her and the topiramate does not appear to be effective. PLAN 1. I will taper patient off topiramate by 50 mg tablets twice a day ever two to three days. 2. Since patient did very well with Nurtec, I will try her on Qulipta 60 mg daily for preventive therapy and will also send a prescription in for the Nurtec. 3. Patient is aware that I will be retiring at the end of the year. Given the distance she lives from [place], she will talk to her primary care physician about finding a local neurologist for her. If that fails, I will be happy to have her follow up with one of my partners here. I asked her to give us a call in a couple of weeks to let us know how the medication changes are working for her and I can still help her in that time frame with adjustment. [email or web address] Not available 02/14/2024 12:17:47 Plan of Treatment Reminders Order Date Submit Date Provider Last Modified By Organization Details Last Modified Time Details Appointments None recorded. Lab None recorded. Referral None recorded. Procedures None recorded. Surgeries None recorded. Imaging None recorded. Medication Orders Qulipta 60 mg tablet 2023 024 [email or web address] [facility][id number], [address] [facility], [place], [place], [id number], 4 18:32:01 [facility] 75 mg disintegrat ing tablet 2023 024 [id number], [address] [facility], [place], [place], [id number], 4 11:51:05 Patient TargetsNo targets recorded. Patient InstructionsNo instructions recorded. Reason for Referral None Reported. Results Created Date Observation Date Name Description Value Unit Range Abnormal Flag Note LastModifiedBy Organization Detail LastModifiedTime 02/13/20 24 02/11/2024 MRI, lower extre mity, w/ contr ast No observ ation record ed. BARCODE Not Available 2023 10:33:06 03/25/19 25 03/10/2024 ankle brach ial index No observ ation record ed. BARCODE Not Available 2024 15:41:54 Result Notes None recorded. Problems Name Problem SNOMED Code Status Onset Date Resolution Date Notes Provider Name and Address Organization Details Recorded Time Chronic migraine without aura [id number] Active 2023 Estrella Monroy [facility] 4 10:02:36 Problem Notes None recorded. Medical Equipment None Reported. Allergies Allergen ID Allergen Name Allergen Category Reaction Reaction Severity Criticality Documentation Date Start Date Code Code System Note Provider Name and Address Organization Details Recorded Time 2145042 latex gloves medicatio n rash Not available Not available 04/10/20232018 44656 UNK React ion: Blist ers; Not Available [facility] 4 04:19:20 736262 nickel environme nt,medica tion Not available Not available Not available 04/08/20232017 54242 29 RxNorm Comme nt: James sapp ; Not Available [facility] 4 23:38:49 Medications Name Sig Start Date Stop Date Status Note LastModified by Organization Details LastModified Time fluoxetine 10 mg capsule TAKE 3 CAPSULES BY MOUTH AT BEDTIME active Not Available Not Available No t Available topiramate 100 mg tablet TAKE 1 TABLET BY MOUTH TWICE DAILY active Not Available Not Available No t Available Nortrel (28) 0.5 mg/0.75 mg/1 mg-35 mcg tablet TAKE 1 TABLET BY MOUTH EVERY DAY active Not Available Not Available No t Available topiramate 50 mg tablet TAKE 1 TABLET BY MOUTH TWICE DAILY 02/13 completed Not Available Not Available Not Available Nurtec ODT 75 mg disintegrat ing tablet 2023 active Not Available Not Available Not Avai lable Qulipta 60 mg tablet active Not Available Not Available No t Available Vitals None Recorded Social History None recorded. Functional Status None recorded. Mental Status None recorded. Family History Nothing Reported. Medical History No medical history recorded. Gynecological HistoryNo gynecological history recorded. Obstetrics History GPAL:G 0 P 0 0 0 0 Past Encounters Encounter ID Performer Location Encounter Start Date Encounter Closed Date Diagnosis/Indication Diagnosis SNOMED-CT Code Diagnosis ICD10 Code Diagnosis Note [id number] Malvin Trujillo MD [address] [facility] ([place]) [address] [place] [address],[address] [place] [phone] 02/14/2024 11:43:03 02/14/2024 15:04:22 Chronic migraine without aura [id number] 42511 G43.709 Health Concerns Section Related Observation LastModified by Organization Detai ls LastModified Time None Recorded Concern Status LastModified by Organization Details LastModified Time None Recorded Advance Directives Directive None Recorded Payers Insurance Date Sequence Insurance Name Policy Number Policy Johnson Covered Member ID Johnson Member ID Guarantor Name 10/11/2023 1 [employer] [id number] Akshat Natarajan [id number] Chepe Robins Notes Date Note Type Note Provider Name and Address Organization Details Recorded Time 02/14/2024 text/html Patient was seen in via a Telehealth visit with video and audio link per protocol for follow up of migraine headaches. Patient lives [place] to [place]. She is working full-time there. She is having migraines about once a week and she is not convinced that the topiramate 150 mg twice a day is doing much for her. We have increased the dosage several times and it seems to help for just a week or two and then wears off. She would be interested in considering another preventive medication. Of note is that she has tried Nurtec for abortive therapy and that seems to work well for her and she tolerates that. Malvin Trujillo MD [address] [facility], [place], [address], [facility] 02/15/2024 16:32:48 OBGyn Episode No OBEpisode recorded.
--- OUTSIDE RECORDS SUMMARY | 2024-09-10 12:57 | XMS_ITS | Encounter Summary ---
Author Organization [facility] Address [address] [place] [address] Care Team Providers Care Sql Manager Name Role Phone Devora Lane MD Primary Care Provider + Encounter Details Date Type Department Care Team (Late st Contact Info) Description 04/20/2024 MyChart Message Enc 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 CAGE ASSEMBLER documented in this encounter Plan of Treatment Upcoming Encounters Date Type Department Care Team (Late st Contact Info) Description 10/06/2024 9:00 AM CDT Office Visit [facility] Medical Group Multispecialty Care - [facility] [address] [facility], [address] [place] [address] Victor Hugo Watkins MD 3 [place] [address] documented as of this encounter Visit Diagnoses Not on filedocumented in this encounter Care Teams Sql Manager Relationship Specialty Start Date End Date Devora Lane MD [address] [place] [address] PCP - General FAMILY PRACTICE 04/14/24 documented as of this encounter
--- OUTSIDE RECORDS SUMMARY | 2024-09-10 12:57 | XMS_ITS | Encounter Summary ---
Author Organization [facility] Address [address] [place] [address] Care Team Providers Care Radiologic Technology Teacher Name Role Phone Devora Lane MD Primary Care Provider + Encounter Details Date Type Department Care Team (Late st Contact Info) Description 07/17/2024 MyChart Message Enc [facility] Medical Group Family Medicine - [place] [address] [place] [address] MD [address] [place] [address] Follow up After ER Visit Social [...] from your doctor or pharmacy? Never 06/04/2024 [facility] Utilities Answer Date Recorded In the past 12 months has e [employer], gas, oil, or water [employer] threatened to shut off services in your [...] declined 06/04/2024 How often do you attend pentecostalism or mu-ism serv ices? Patient declined 06/04/2024 Do you belong to any clubs o r organizations such as pentecostalism groups, unions, fraternal or athletic groups, or [...] Recorded Patient Health Questionnaire-2 Score 0 04/14/2024 [facility] of Occupat ional Health - Occupational Stress [...] any time in the past 12 m [facility], were you homeless or living in a retirement (including now)? 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 RUBBER Gender Identity Female 06/04/2024 9:31 AM CDT [...] Description 10/06/2024 9:00 AM CDT Office Visit [facility] Medical Group Multispecialty Care - [facility] [address] [facility], [address] [place] [address] Victor Hugo Watkins MD [address] [place] [address] documented as of this encounter Visit Diagnoses Not on filedocumented in this encounter Care Teams Radiologic Technology Teacher Relationship Specialty Start Date End Date Devora Lane MD [address] [place] [address] PCP - General FAMILY PRACTICE 04/14/24 documented as of this encounter
[2024-09-10 13:56] LABS: Beta HCG Quantitative 5.32 mIU/ML
== END 2024-09-10 12:54 | disposition home or self-care (01) ==
LOC: ANHLAB 12:54
PROVIDERS: PCP Student in an Organized Health Care Education/Training Program; Visit Provider Obstetrics & Gynecology
DX: O09.299 Supervision of pregnancy with other poor reproductive or obstetric history, unspecified trimester (principal); Z3A.00 Weeks of gestation of pregnancy not specified
CPT/HCPCS: 36415; 84702

== ENCOUNTER 2024-10-21 15:58 | Outpatient (CLI) | payer OTHER, SELFPAY ==
--- OUTSIDE RECORDS SUMMARY | 2024-10-21 16:01 | XMS_ITS | Clinical Summary ---
Author Organization [facility] Address [address] [place] [address] Care Team Providers Care Furnace Checker Name Role Phone Unknown, Notinfile Primary Care Provider Unavail able Mariela Mcintyre MD Unavailable [phone] Norris Palumbo MD Unavailable [phone] Allergies Active Allergy Reactions Criticality Noted [...] (05/18/2020): Added automatically from request for surgery [id number] Closed fracture of shaft of right femur [...] on file Legal Sex Female 4:56 AM PASTEURISER OPERATOR Gender Identity Female 05/01/2018 10:26 AM PASTEURISER OPERATOR Sexual Orientation Not on file Obstetrics History Last Filed Vital Signs Vital Sign Reading Time Taken Comments Blood Pressure 114/60 05/11/2022 9:28 AM PASTEURISER OPERATOR Pulse 68 05/11/2022 9:28 AM PASTEURISER OPERATOR Temperature 36.7 C (98.1 F) 05/11/2022 9:28 AM PASTEURISER OPERATOR Respiratory Rate 20 05/11/2022 9:28 AM PASTEURISER OPERATOR Oxygen Saturation 99% 05/11/2022 9:28 AM PASTEURISER OPERATOR Inhaled Oxygen Concentration - - Weight 73 kg (161 lb) 05/11/2022 9:28 AM PASTEURISER OPERATOR Height 160 cm (5' 3) 05/11/2022 9:28 AM PASTEURISER OPERATOR Body Mass Index 28.52 05/11/2022 9:28 AM PASTEURISER OPERATOR Plan of Treatment Health Maintenance Due Date Last Done Comments Cervical Cancer Screening 1999 Depression Screening 1999 Hepatitis C Screening 1999 Varicella Vaccines (1 of 2 - 13+ 2-dose series) 07/11/2012 HPV Vaccines (1 - 3-dose series) 07/11/2014 Regular Well Visit/Exam 18-64 07/11/2017 Covid-19 Vaccine ( season) 2023 08/12/2020, 07/22/2020 Influenza Vaccine (#1) 2024 , 12/19/2019, 02/25/2019, Additional history exists DTaP/Tdap/Td Vaccine (8 - Td or Tdap) 04/14/2034 04/14/2024, 12/23/2012, 10/05/2004, Additional history exists Hepatitis B Screening Completed 04/02/2001 , 1999, 1999 Pneumococcal vaccine <65 Aged Out No longer eligible based on patient's age to complete this topic Insurance [facility] H[facility]/PPO Address: [facility] [address] [place] [address] [facility] HMO/PPO Address: [address] [address] [place] [address] [place] Advance Directives For more information, please contact: [phone] Documents on File Type Date Recorded Patient Parachute Panel Joiner Expl anation ADVANCE DIRECTIVE 08/18/2020 8:08 AM ADVANCE DIRECTIVE 02/27/2018 3:21 PM ADVANCE DIRECTIVE 08/01/2017 12:45 PM ADVANCE DIRECTIVE 08/01/2017 Advance Di rective Checklist Care Teams Furnace Checker Relationship Specialty Start Date End Date Unknown, Notinfile PCP - General 05/01/24 Mariela Mcintyre MD [address] [place] [phone] 05/01/24 Norris Palumbo MD [address] [address] Surgeon Orthopedic Surgery 08/18/20
[2024-10-21 17:25] LABS: Beta HCG Quantitative 7097.60 mIU/ML
== END 2024-10-21 15:59 | disposition home or self-care (01) ==
LOC: ANHLAB 15:59
PROVIDERS: PCP Student in an Organized Health Care Education/Training Program; Visit Provider Obstetrics & Gynecology
DX: N96 Recurrent pregnancy loss (principal)
CPT/HCPCS: 36415; 84702

== ENCOUNTER 2024-10-23 15:44 | Outpatient (CLI) | payer OTHER, SELFPAY ==
--- OUTSIDE RECORDS SUMMARY | 2024-10-23 15:47 | XMS_ITS | Encounter Summary ---
Author Organization [facility] Address [address] [place] [address] Care Team Providers Care Tile Trimmer Name Role Phone Devora Lane MD Primary Care Provider + Encounter Details Date Type Department Care Team (Late st Contact Info) Description 07/17/2024 MyChart Message Enc [facility] Medical [facility] Family Medicine - [place] [address] [place] [phone] MD [address] [place] [address] Follow up After ER Visit Social [...] from your doctor or pharmacy? Never 06/04/2024 [facility] Utilities Answer Date Recorded In the past 12 months has e [employer], gas, oil, or water [employer] threatened to shut off services in your [...] declined 06/04/2024 How often do you attend hoahaoism or hoahaoism serv ices? Patient declined 06/04/2024 Do you belong to any clubs o r organizations such as hoahaoism groups, unions, fraternal or athletic groups, or [...] Recorded Patient Health Questionnaire-2 Score 0 04/14/2024 [facility] [place] of Occupat ional Health - Occupational Stress [...] any time in the past 12 m [facility], were you homeless or living in a fdc (including now)? 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 Answer Date of Assessment Author Status No 06/03/2024 9:00 PM Berto Bermudez RN Active * Do you have difficulty dressing or bathing? Answer Date of Assessment Author Status No 06/03/2024 9:00 PM Berto Bermudez RN Active * Because of a physical, mental, or emotional condition, do you have difficulty doing errands alone such as visiting a doctor's office or shopping? Answer Date of Assessment Author Status No 06/03/2024 9:00 PM Berto Bermudez RN Active documented as of this encounter Mental Status * Because of a physical, mental, or emotional condition, do you have serious difficulty concentrating, remembering, or making decisions? Answer Entry Date Author Status No 06/03/2024 9:00 PM Berto Bermudez RN Active documented in this encounter Plan of Treatment Upcoming Encounters Date Type Department Care Team (Late st Contact Info) Description 02/22/2025 3:20 PM COMMERCIAL SOLAR SALES CONSULTANT Office Visit [facility] Multispecialty Care - [facility] [address] [facility], [address] [place] [address] Victor Hugo Watkins MD [address] [place] [address] documented as of this encounter Visit Diagnoses Not on filedocumented in this encounter Care Teams Tile Trimmer Relationship Specialty Start Date End Date Devora Lane MD [address] [place] [address] PCP - General FAMILY PRACTICE 04/14/24 documented as of this encounter
--- OUTSIDE RECORDS SUMMARY | 2024-10-23 15:47 | XMS_ITS | Encounter Summary ---
Author Organization [facility] Address [address] [place] [address] Care Team Providers Care Wafer Fabricator Name Role Phone Mariela Mcintyre MD Primary Care Provider [phone] MD Primary Care Provider + Encounter Details Date Type Department Care Team (Late Contact Info) Description 08/16/[address] 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 TEAM MEMBER Gender Identity Female 06/04/2024 9:31 AM CDT Sexual Orientation Not on file documented as of this encounter Plan of Treatment Upcoming Encounters Date Type Department Care Team (Late Contact Info) Description 02/22/2025 3:20 PM RETAIL TEAM MEMBER Office Visit [facility] Medical Group Multispecialty Care - [address], [address] [place] [address] Victor Hugo Watkins MD [address] [place] [address] documented as of this encounter Visit Diagnoses Not on filedocumented in this encounter Care Teams Wafer Fabricator Relationship Specialty Start Date End Date Mariela Mcintyre MD [address] [place] [address] PCP - General PEDIATRICS 09/15/18 04/13/[address] MD [address] [place] [address] PCP - General FAMILY PRACTICE 04/14/24 documented as of this encounter
--- OUTSIDE RECORDS SUMMARY | 2024-10-23 15:47 | XMS_ITS | Encounter Summary ---
Author Organization [facility] Address [address] [place] [address] Care Team Providers Care Brake Lining Curer Name Role Phone Devora Lane MD Primary Care Provider + Encounter Details Date Type Department Care Team (Late st Contact Info) Description 04/20/2024 MyChart Message Enc [facility] Medical Group Family Medicine - [place] [address] [place] [phone] MD [address] [place] [address] Labs Ordered from Orthopedic Surgeon Social [...] AM CDT Legal Sex Female 9:15 PM TOMBSTONE ERECTOR HELPER Gender Identity Female 06/04/2024 9:31 AM CDT Sexual Orientation Not on file documented as of this encounter Progress Notes * Shaista Wood MA - 04/20/2024 3:57 PM CST Pt is aware that she will have to get the ortho labs done separate. STONE ERECTOR HELPER documented in this encounter Plan of Treatment Upcoming Encounters Date Type Department Care Team (Late st Contact Info) Description 02/22/2025 3:20 PM TOMBSTONE ERECTOR HELPER Office Visit [facility] Medical Group Multispecialty Care - [facility] [address] [facility], [address] [place] [phone] Victor Hugo Watkins MD [address] [place] [address] documented as of this encounter Visit Diagnoses Not on filedocumented in this encounter Care Teams Brake Lining Curer Relationship Specialty Start Date End Date Devora Lane MD [address] [place] [address] PCP - General FAMILY PRACTICE 04/14/24 documented as of this encounter
--- OUTSIDE RECORDS SUMMARY | 2024-10-23 15:47 | XMS_ITS | Clinical Summary ---
Author Organization [facility] Address [facility] [place] [address] Care Team Providers Care Munitions Worker Name Role Phone Devora Lane MD Primary Care Provider + Allergies Active Allergy Reactions Criticality Noted Date Comments Latex Hives 09/21/2022 Nickel Rash Medium 08/13/2017 Medications Vit-Fe Fumarate-FA ( VITAMIN OR) Take 1 tablet by mouth daily. Active Bacillus Coagulans-Inulin (PROBIOTIC) 1-250 BILLION-MG Cap Active Magnesium Glycinate 100 MG Cap Take 100 mg by mouth daily. 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 MIL is physical therapist. Migraines 04/14/2024 Overview (04/14/2024): Without aura. Seeing neurology but her neurologist is retiring.. About twice a month. Quilipta. Still deciding if its working. Topiramate and Nurtec were not effective for her in the past. Assessment & Plan (04/14/2024 3:46 PM AUTOS DISASSEMBLER): Not controlled. Would like to see a new neurologist. Referral entered. Chronic migraine without aura 11/08/2023 Encounters Date Type Department Care Team Description 10/06/2024 9:00 AM CDT Office Visit [facility] Medical Group Multispecialty Care - [facility] [address] [facility], [address] [place] [address] Victor Hugo Watkins MD Establish Care; Migraine (X 10 years was seen by neurologist in the past retired) 10/06/2024 Travel 08/06/2024 Results Follow-Up [facility] Family Medicine - [place] [address] [place], [place] [phone] Devora Lane MD COMPREHENSIVE METABOLIC PANEL from Last 3 Months Immunizations Immunization Administration Dates Next Due Afluria 36 MONTHS+ (Prefille d Syringe IIV4) 02/25/2019 Dtap (Acel-Immune) 10/05/2004, 2,03/27/2000,12/09,1999 HPV GARDASIL 9-VALENT 02/27/2021,12/22/2020,10/09 Hib-Hepatitis B (Comvax) 04/02/2001,1999,0 1999 Influenza Adult (Generic) 04/08/2022,12/2019,02/25/2019,1208/2017,12/18/2016 MENINGOCOCCAL A C Y&W-135 oligosaccharide (MENVEO) 10/12/2013 [...] Never Smokeless Tobacco: Never Tobacco Cessation:Counseling Given: Yes Alcohol Use Standard Drinks/Week Comments Yes 0 (1 standard drink = 0.6 oz pur e alcohol) 2 drinks a month B1300 Health Literacy Answer Date Recor ded How often do you need to hav e someone help you when you read instructions, pamphlets, or other written material from your doctor or pharmacy? Never 06/04/2024 [facility] Utilities Answer Date Recorded In the past 12 months has e [employer], gas, oil, or water [employer] threatened to shut off services in your [...] declined 06/04/2024 How often do you attend anabaptist or quaker serv ices? Patient declined 06/04/2024 Do you belong to any clubs o r organizations such as anabaptist groups, unions, fraternal or athletic groups, or [...] Recorded Patient Health Questionnaire-2 Score 0 04/14/2024 [facility] of Occupat ional [facility] - Occupational Stress Questionnaire Answer Date Recorded [...] any time in the past 12 m [facility], were you homeless or living in a penitentiary (including now)? No 06/04/2024 Comments No Sex and Gender Information Value Date Recorded Sex Assigned at Female 06/03/2024 11:56 AM CDT Legal Sex Female 9:15 PM AUTOS DISASSEMBLER Gender Identity Female 06/04/2024 9:31 AM CDT Sexual Orientation Not on file Last Filed Vital Signs Vital Sign Reading Time Taken Comments Blood Pressure 100/68 10/06/2024 8:57 AM CDT Pulse 80 10/06/2024 8:57 AM CDT Temperature 37.2 C (99 F) 10/06/2024 8:57 AM CDT Respiratory Rate 16 10/06/2024 8:57 AM CDT Oxygen Saturation 100% 10/06/2024 8:57 AM CDT Inhaled Oxygen Concentration - - Weight 74.8 kg (165 lb) 10/06/2024 8:57 AM CDT Height 160 cm (5' 3) 10/06/2024 8:57 AM CDT Body Mass Index 29.23 10/06/2024 8:57 AM CDT Plan of Treatment Upcoming Encounters Date Type Department Care Team (Late st Contact Info) Description 02/22/2025 3:20 PM AUTOS DISASSEMBLER Office Visit [facility] Medical Group Multispecialty Care - [address], [address] [place] [phone] Victor Hugo Watkins MD [address] [place] [address] Health Maintenance Due Date Last Done Comments [...] Meningococcal Vaccine Completed 10/26/2016, 014 PHQ-2 (Physician [place]) Completed 04/14/2024 Meningococcal B Vaccine Aged Out [...] 08/05/2024 10:41 AM CDT Elevated liver enzymes from Last 3 Months Results * COMPREHENSIVE METABOLIC PANEL (08/05/2024 10:41 AM CDT) GLUCOSE 92 70 - 99 mg/dL [facility] [...] AM CDT Performed at: 01 - [facility] [address] [id number] Ceramics Technician: Franck Levine PhD, Phone: [phone] Devora Lane MD LABORATORY Final Re sult Performing Organization Address City/State/[facility] Co de Phone Number [facility] [address] [place] [address] [facility] 1 from Last 3 Months Insurance [facility] Advance Directives * Full Code (Latest Code Status on File) Date Activated Date Inactivated Comments 06/03/2024 7:26 PM 06/04/2024 12:29 PM Care Teams Munitions Worker Relationship Specialty Start Date End Date Devora Lane MD [address] [facility] [place] [address] PCP - General FAMILY PRACTICE 04/14/24
--- OUTSIDE RECORDS SUMMARY | 2024-10-23 15:47 | XMS_ITS | Clinical Summary ---
Author Organization [facility] Address [address] [place] [address] Care Team Providers Care Shredded Filler Cutter Operator Name Role Phone Unknown, Notinfile Primary Care Provider Unavail able Mariela Mcintyre MD Unavailable [phone] Norris Palumbo MD Unavailable [phone] Allergies Active Allergy Reactions Criticality Noted [...] (05/18/2020): Added automatically from request for surgery [id number] Closed fracture of shaft of right femur [...] on file Legal Sex Female 4:56 AM ELECTRIC MELT OPERATOR Gender Identity Female 05/01/2018 10:26 AM ELECTRIC MELT OPERATOR Sexual Orientation Not on file Obstetrics History Last Filed Vital Signs Vital Sign Reading Time Taken Comments Blood Pressure 114/60 05/11/2022 9:28 AM ELECTRIC MELT OPERATOR Pulse 68 05/11/2022 9:28 AM ELECTRIC MELT OPERATOR Temperature 36.7 C (98.1 F) 05/11/2022 9:28 AM ELECTRIC MELT OPERATOR Respiratory Rate 20 05/11/2022 9:28 AM ELECTRIC MELT OPERATOR Oxygen Saturation 99% 05/11/2022 9:28 AM ELECTRIC MELT OPERATOR Inhaled Oxygen Concentration - - Weight 73 kg (161 lb) 05/11/2022 9:28 AM ELECTRIC MELT OPERATOR Height 160 cm (5' 3) 05/11/2022 9:28 AM ELECTRIC MELT OPERATOR Body Mass Index 28.52 05/11/2022 9:28 AM ELECTRIC MELT OPERATOR Plan of Treatment Health Maintenance Due [...] patient's age to complete this topic Insurance [facility] CHOICE PLUS [facility] HMO/PPO Address: [facility] [address] [place] [address] [facility] CHOICE PLUS [facility] HMO/PPO Address: [address] [address] [place] [address] [place] Advance Directives For more information, please contact: [phone] Documents on File Type Date Recorded Patient Criminal Lawyer Expl anation ADVANCE DIRECTIVE 08/18/2020 8:08 AM ADVANCE DIRECTIVE 02/27/2018 3:21 PM ADVANCE DIRECTIVE 08/01/2017 12:45 PM ADVANCE DIRECTIVE 08/01/2017 Advance Di rective Checklist Care Teams Shredded Filler Cutter Operator Relationship Specialty Start Date End Date Unknown, Notinfile PCP - General 05/01/24 Mariela Mcintyre MD [address] [place] [phone] 05/01/24 Norris Palumbo MD [address] [address] Surgeon Orthopedic Surgery 08/18/20
[2024-10-23 18:17] LABS: Beta HCG Quantitative 14819.00 mIU/ML
== END 2024-10-23 15:45 | disposition home or self-care (01) ==
LOC: ANHLAB 15:45
PROVIDERS: PCP Student in an Organized Health Care Education/Training Program; Visit Provider Obstetrics & Gynecology
DX: N96 Recurrent pregnancy loss (principal)
CPT/HCPCS: 36415; 84702

== ENCOUNTER 2024-11-18 15:33 | Outpatient (CLI) | payer OTHER, SELFPAY ==
--- NOTE | ~2024-11-18 | US_ITS ---
EXAMINATION: US OB <=14 wk fetus w TV DATE: 11/18/2024 16:06 INDICATION: Amenorrhea, unspecified. TECHNIQUE: Real-time transabdominal and transvaginal pelvic ultrasound was performed. COMPARISON: None. FINDINGS: TRANSABDOMINAL ULTRASOUND: The uterus measures 8.3 x 6.4 x 8.4 cm. TRANSVAGINAL ULTRASOUND: There is an intrauterine gestational sac. A yolk sac is identified. The crown rump length measures 2.4 cm, which correlates with an estimated gestational age of 9 weeks and 0 day(s) (+/-) 6 day(s). heart motion is identified measuring 178 beats per minute (bpm) by M-mode Doppler. There is a small subchorionic hematoma measuring 8 x 7 x 9 mm. The right ovary measures 3.6 x 2.5 x 3.6 cm. The left ovary measures 3.1 x 1.3 x 2.4 cm. There is no free fluid in the pelvis. IMPRESSION: 1. Single living intrauterine gestation with estimated date of delivery of 06/23/2025. 2. Small subchorionic hematoma. Reviewed, dictated and finalized at location E. IMPRESSION: 1. Single living intrauterine gestation with estimated date of delivery of 06/09. 2. Small subchorionic hematoma.
== END 2024-11-18 15:34 | disposition home or self-care (01) ==
LOC: MICIMG 15:34
PROVIDERS: PCP Nurse Practitioner Family; Visit Provider Nurse Practitioner Family
DX: N91.2 Amenorrhea, unspecified (principal)
CPT/HCPCS: 76801; 76817

== ENCOUNTER 2025-01-06 15:27 | Outpatient (CLI) | payer OTHER, SELFPAY ==
[2025-01-06 16:56] LABS: Thyroid Stimulating Hormone 0.213 uIU/mL (0.465-4.680)
--- OUTSIDE RECORDS SUMMARY | 2025-01-06 17:32 | XMS_ITS | Clinical Summary ---
Author Organization [facility] Address [facility] [place] [address] Care Team Providers Care Multi Line Claims Adjuster Name Role Phone Devora Lane MD Primary [...] syndrome 04/14/2024 Overview (04/14/2024): Seeing orthopedist in [place]. MIL is physical therapist. Migraines 04/14/2024 Overview (04/14/2024): Without aura. Seeing neurology but her neurologist is retiring.. About twice a month. Quilipta. Still deciding if its working. Topiramate and Nurtec were not effective for her in the past. Assessment & Plan (04/14/2024 3:46 PM DATA QUALITY CONSULTANT): Not controlled. Would like to see a new neurologist. Referral entered. Chronic migraine without aura 11/08/2023 Encounters Date Type Department Care Team Description 10/06/2024 9:00 AM CDT Office Visit [facility] Medical Group Multispecialty Care - [address], [address] [place] [address] Victor Hugo Watkins MD Establish Care; Migraine (X 10 years was seen by neurologist in the past retired) 10/06/2024 Travel from Last 3 Months Immunizations Immunization [...] from your doctor or pharmacy? Never 06/04/2024 [facility] Utilities Answer Date Recorded In the past 12 months has [facility] [employer], gas, oil, or water [employer] threatened to shut off services in your [...] No 06/04/2024 Social Connection and Isolation Panel Answer Date Recorded In a typical week, how many times do you talk on the phone with family, friends, or neighbors? Patient declined 06/04/2024 How often do you get togethe r with friends or relatives? Patient declined 06/04/2024 How often do you attend faith or sikhism serv ices? Patient declined 06/04/2024 Do you belong to any clubs o r organizations such as faith groups, unions, fraternal or athletic groups, or [...] Recorded Patient Health Questionnaire-2 Score 0 04/14/2024 [facility] [place] of Occupat ional Health - Occupational Stress [...] any time in the past 12 m [facility], were you homeless or living in a penitentiary (including now)? No 06/04/2024 Comments No Sex and Gender Information Value Date Recorded Sex Assigned at Female 06/03/2024 11:56 AM CDT Legal Sex Female 9:15 PM DATA QUALITY CONSULTANT Gender Identity Female 06/04/2024 9:31 AM [...] st Contact Info) Description 02/22/2025 3:20 PM DATA QUALITY CONSULTANT Office Visit [facility] Medical Group Multispecialty Care - [address], [address] [place] [address] Victor Hugo Watkins MD [address] [place] [address] Health Maintenance Due Date Last Done Comments Cervical Cancer Screening Pap Smear (Age 21 to 29) Every 3 Years 1999 Cervical Cancer Screening 1999 Hepatitis C 07/11/2017 HPV Vaccines (3 - 3-dose series) 05/22/2021 02/27/2021, 12/22/2020, 10/20/2020 COVID-19 Vaccine ( season) 2024 08/12/2020, 07/22/2020 Influenza Adult (#1) 2024 04/08/2022, 12/19/2019, 02/25/2019, Additional history exists Annual Physical 04/14/2025 04/14/2024 DTaP, Tdap and Td Vaccines (8 - Td or Tdap) 04/14/2034 04/14/2024, 12/23/2012, 10/05/2004, Additional history exists Hepatitis B Vaccines Completed 04/02/2001, 1999, 1999 Meningococcal Vaccine Completed 10/26/2016, 014 PHQ-2 (Physician [place]) Completed 04/14/2024 Hepatitis A Vaccines Aged Out No long er eligible based on patient's age to complete this topic Meningococcal B Vaccine Aged Out No l onger eligible based on patient's age to complete this topic Pneumococcal Vaccine: Pediatrics (0 to 5 Years) and At-Risk Patients (6 to 49 Years) Aged Out No longer eligible based on patient's age to complete this topic RSV Immunizations Under 20 Months Aged Out No longer eligible based on patient's age to complete this topic Insurance [facility] Advance Directives * Full Code (Latest Code Status on File) Date Activated Date Inactivated Comments 06/03/2024 7:26 PM 06/04/2024 12:29 PM Care Teams Multi Line Claims Adjuster Relationship Specialty Start Date End Date Devora Lane MD [address] [place] [address] PCP - General FAMILY PRACTICE 04/14/24
--- OUTSIDE RECORDS SUMMARY | 2025-01-06 17:32 | XMS_ITS | Encounter Summary ---
Author Organization [facility] Address [address] [place] [address] Care Team Providers Care Safety Net Maker Name Role Phone Devora Lane MD Primary Care Provider + Encounter Details Date Type Department Care Team (Late st Contact Info) Description 04/20/2024 MyChart Message Enc [facility] Medical Group Family Medicine - [place] [address] [place] [phone] MD [address] [place] [phone] Labs Ordered from Orthopedic Surgeon Social [...] AM CDT Legal Sex Female 9:15 PM INCENDIARY POWDER MIXER Gender Identity Female 06/04/2024 9:31 AM CDT Sexual Orientation Not on file documented as of this encounter Progress Notes * Shaista Wood MA - 04/20/2024 3:57 PM CST Pt is aware that she will have to get the ortho labs done separate. NDIARY POWDER MIXER documented in this encounter Plan of Treatment Upcoming Encounters Date Type Department Care Team (Late st Contact Info) Description 02/22/2025 3:20 PM INCENDIARY POWDER MIXER Office Visit [facility] Medical Group Multispecialty Care - [facility] [address] [facility], [address] [place] [phone] Victor Hugo Watkins MD [address] [place] [address] documented as of this encounter Visit Diagnoses Not on filedocumented in this encounter Care Teams Safety Net Maker Relationship Specialty Start Date End Date Devora Lane MD [address] [place] [address] PCP - General FAMILY PRACTICE 04/14/24 documented as of this encounter
--- OUTSIDE RECORDS SUMMARY | 2025-01-06 17:32 | XMS_ITS | Clinical Summary ---
Author Organization [facility] [employer] Address [address] [place] [address] [place] [address] Care Team Providers Care Poultry Farm Supervisor Name Role Phone Unavailable Primary Care Provider Unavailabl e Source Comments [facility],non-owned Affiliates and Associated Physician Practices is amultiple site organization consisting of ambulatory clinics and hospital sitesin [place], [place], [place] and [place]. This disclosure is being madepursuant to the Care Everywhere program and may not contain all information available regarding this patient. Last updated 17.[facility] Active Problems Problem Noted Date Diagnosed Date Encounter for ultrasound 10/30/2024 Estimated Date of Delivery Comme nts Yes 06/24/2025 Based on Ultraso und Encounters Date Type Department Care Team Description 12/17/2024 Telephone [facility]/ EVALUATION UNIT [address] [place] [address] Estrella Sears Appointment 11/02/2024 Telephone [facility] MATERNAL/ EVALUATION UNIT [address] [place] [address] Estrella Sears Appointment 10/30/2024 8:15 AM CDT - 10/30/2024 11:59 PM CDT Hospital Encounter [facility]/ EVALUATION UNIT [address] [place] [address] Georgia Kapadia MD Discharge Disposition: Home or Self Care 10/30/2024 Travel 10/28/2024 Telephone [facility] MATERNAL/ EVALUATION UNIT [address] [place] [address] Mirta Beckett RN Referral 10/28/2024 Telephone [facility] MATERNAL/ EVALUATION UNIT [address] [place] [address] Estrella Sears Appointment from Last 3 Months Social History Tobacco Use Types Packs/Day Years Used Date Smoking Tobacco: Never Assessed Estimated Date of Delivery Comme nts Yes 06/24/2025 Based on Ultraso und Sex and Gender Information Value Date Recorded Sex Assigned at Not on file Legal Sex Female 12:20 PM CDT Gender Identity Not on file Sexual Orientation Not on file Plan of Treatment Health Maintenance Due Date Last Done Comments HIV SCREENING 07/11/2014 HPV VACCINE (1 - 3-dose series) 07/11/2014 CHLAMYDIA/GONORRHEA SCREENING 2015 HEPATITIS C SCREENING 07/07/2017 DTAP/TDAP/TD VACCINES (1 - Tdap) 07/11/2018 HEPATITIS B VACCINE (1 of 3 - 19+ 3-dose series) 07/11/2018 PAP SMEAR 07/11/2020 DEPRESSION SCREENING 03/11/2024 COVID-19 VACCINE (1 - 2023-2 5 season) 2024 INFLUENZA VACCINE (#1) 2024 OB-TDAP CURRENT 03/25/20252024, 10/30/2022 ZOSTER VACCINE (1 of 2) 07/11/2049 HIB VACCINE Aged Out No longer eligi ble based on patient's age to complete this topic MENINGOCOCCAL (Group B) VACCINE SHARED DECISION-MAKING Aged Out No longer eligible based on patient's age to complete this topic MENINGOCOCCAL GROUPS A/C/Y/W VACCINE Aged Out No longer eligible b ased on patient's age to complete this topic PNEUMOCOCCAL VACCINE Aged Out No long er eligible based on patient's age to complete this topic Respiratory Syncytial Virus (RSV) Vaccine Pt: or over 60 yrs (No Doses Required) Completed Procedures Procedure Name Priority Date/Time Associated Diagnosis Comments SONOGRAM - COMPLETE Routine 10/30/2024 8 :35 AM CDT Establish gestational age, ultrasound (HCC) from Last 3 Months Results * Sonogram - Complete (10/30/2024 8:35 AM CDT) Linked Results Indication ======== Confirm viability of fetus Dating/Irregular periods History ====== OB History 3. Para 0 [id number] Maternal Assessment Physical Exam Height 160 cm, 5 ft 3 in. Initial weight 74 kg, 164 lb. Initial BMI 29.05 kg/m Method ====== Transabdominal and transvaginal ultrasound examination. View: limited secondary to challenging acoustic properties ========= Lemons . Number of embryos: 1 Dating ====== Date Details Gest. age TOI LMP 09/12/2024 Cycle: irregular cycle 6 w + 6 d 06/19/2025 U/S 10/30/2024 based upon CRL 6 w + 1 d 06/24/2025 Assigned dating based on ultrasound (CRL), selected on 10/30/2024 6 w + 1 d 06/24/2025 Assessment Gestational sac: visualized. Location: intrauterine Yolk sac: visualized Embryo: visualized Cardiac activity: present CRL 4.6 mm 6w 1d 20% Hadlock FHR 114 bpm Maternal Structures Right Ovary Normal Corpus luteum: purely cystic Cyst(s) Size 20.1 mm x 20.3 mm x 23.9 mm. Mean 21.4 mm. Vol 5.106 cm . Simple cyst Left Ovary Not visualized Appearance: Adnexa appears normal Cul de Sac No free fluid visualized subchorionic hemorrhage 0.6 x 0.1 x 0.5 cm Impression ========= Single, live, intrauterine at 6w 1d Small subchorionic hemorrhage as described above Comment ======== ultrasound alone cannot detect all structural, genetic, or functional , placental, or maternal abnormalities Follow-up ======== Follow up ultrasound at 12 weeks for NT if desired. Coding ====== Diagnoses O36.80X0: with inconclusive viability Procedures 93432: 1st Trimester 53234: US Preg Uterus Transvaginal BuyHappyS Anatomical Region Laterality Modality Other 10/30/2024 8:35 AM CDT us Duran Davis MD [facility] ORDERABLES Edited Result - Final from Last 3 Months Insurance
--- OUTSIDE RECORDS SUMMARY | 2025-01-06 17:32 | XMS_ITS | Encounter Summary ---
Author Organization [facility] Address [address] [place] [address] Care Team Providers Care Bottom Stop Attacher Name Role Phone Devora Lane MD Primary Care Provider + Encounter Details Date Type Department Care Team (Late st Contact Info) Description 07/17/2024 MyChart Message Enc [facility] Family Medicine - [place] [address] [place] [address] MD [address] [place] [address] Follow up After ER Visit Social [...] from your doctor or pharmacy? Never 06/04/2024 [facility] Utilities Answer Date Recorded In the past 12 months has e [employer], gas, oil, or water [employer] threatened to shut off services in your [...] declined 06/04/2024 How often do you attend hinduism or rastafari serv ices? Patient declined 06/04/2024 Do you belong to any clubs o r organizations such as hinduism groups, unions, fraternal or athletic groups, or [...] Recorded Patient Health Questionnaire-2 Score 0 04/14/2024 [facility] Occup[facility] ional Health - Occupational [...] any time in the past 12 m [facility], were you homeless or living in a [facility]p (including now)? No 06/04/2024 Comments No Sex and Gender Information Value Date Recorded Sex Assigned at Female 06/03/2024 11:56 AM CDT Legal Sex Female 9:15 PM MANAGER NUCLEAR Gender Identity Female 06/04/2024 9:31 AM CDT Sexual Orientation Not on file documented as of this encounter Functional Status * Are you deaf or do you have serious difficulty hearing Answer Date of Assessment Author Status No 06/03/2024 9:00 PM CDT Berto Hackett, RN Active * Are you blind or do you have serious difficulty seeing, even when wearing glasses? Answer Date of Assessment Author Status No 06/03/2024 9:00 PM Berto Bermudez RN Active * Do you have serious [...] st Contact Info) Description 02/22/2025 3:20 PM MANAGER NUCLEAR Office Visit [facility] Multispecialty Care - [facility] [address] [facility], [address] [place] [address] Victor Hugo Watkins MD [address] [place] [address] documented as of this encounter Visit Diagnoses Not on filedocumented in this encounter Care Teams Bottom Stop Attacher Relationship Specialty Start Date End Date Devora Lane MD [address] [place] [address] PCP - General FAMILY PRACTICE 04/14/24 documented as of this encounter
--- OUTSIDE RECORDS SUMMARY | 2025-01-06 17:32 | XMS_ITS | Encounter Summary ---
Author Organization [facility] Address [address] [place] [address] Care Team Providers Care Cleaners Name Role Phone Mariela Mcintyre MD Primary Care Provider [phone] MD Primary Care Provider + Encounter Details Date Type Department Care Team (Late Contact Info) Description 08/16/[address] [facility] [address] [place] [address] , Generic Conversion, Social History Tobacco Use Types Packs/Day Years Used Date Smoking Tobacco: Never Assessed Comments Unknown Sex and Gender Information Value Date Recorded Sex Assigned at Female 06/03/2024 11:56 AM CDT Legal Sex Female 9:15 PM OUTSIDE SALESMAN Gender Identity Female 06/04/2024 9:31 AM CDT Sexual Orientation Not on file documented as of this encounter Plan of Treatment Upcoming Encounters Date Type Department Care Team (Late Contact Info) Description 02/22/2025 3:20 PM OUTSIDE SALESMAN Office Visit [facility] Medical [facility] Multispecialty Care - [address], [address] [place] [phone] Victor Hugo Watkins MD [address] [place] [address] documented as of this encounter Visit Diagnoses Not on filedocumented in this encounter Care Teams Cleaners Relationship Specialty Start Date End Date Mariela Mcintyre MD [address] [place] [address] PCP - General PEDIATRICS 09/15/18 04/13/[address] MD [address] [place] [address] PCP - General FAMILY PRACTICE 04/14/24 documented as of this encounter
--- OUTSIDE RECORDS SUMMARY | 2025-01-06 17:32 | XMS_ITS | Clinical Summary ---
Author Organization [facility] Address [address] [place] [address] Care Team Providers Care Fur Cleaner Name Role Phone Unknown, Notinfile Primary Care Provider Unavail able Mariela Mcintyre MD Unavailable [phone] Norris Palumbo MD Unavailable [phone] Allergies Active Allergy Reactions Criticality Noted [...] (05/18/2020): Added automatically from request for surgery [id number] Closed fracture of shaft of right femur [...] on file Legal Sex Female 4:56 AM ANGLESMITH Gender Identity Female 05/01/2018 10:26 AM ANGLESMITH Sexual Orientation Not on file Obstetrics History Last Filed Vital Signs Vital Sign Reading Time Taken Comments Blood Pressure 114/60 05/11/2022 9:28 AM ANGLESMITH Pulse 68 05/11/2022 9:28 AM ANGLESMITH Temperature 36.7 C (98.1 F) 05/11/2022 9:28 AM ANGLESMITH Respiratory Rate 20 05/11/2022 9:28 AM ANGLESMITH Oxygen Saturation 99% 05/11/2022 9:28 AM ANGLESMITH Inhaled Oxygen Concentration - - Weight 73 kg (161 lb) 05/11/2022 9:28 AM ANGLESMITH Height 160 cm (5' 3) 05/11/2022 9:28 AM ANGLESMITH Body Mass Index 28.52 05/11/2022 9:28 AM ANGLESMITH Plan of Treatment Health Maintenance Due Date Last Done Comments Cervical Cancer Screening 1999 Depression Screening 1999 Hepatitis C Screening 1999 Varicella Vaccines (1 of 2 - 13+ 2-dose series) 07/11/2012 HPV Vaccines (1 - 3-dose series) 07/11/2014 Regular Well Visit/Exam 18-64 07/11/2017 Covid-19 Vaccine ( season) 2024 08/12/2020, 07/22/2020 Influenza Vaccine (#1) 2024 , 12/19/2019, 02/25/2019, Additional history exists DTaP/Tdap/Td Vaccine (8 - Td or Tdap) 04/14/2034 04/14/2024, 12/23/2012, 10/05/2004, Additional history exists Hepatitis B Screening Completed 04/02/2001 , 1999, 1999 Pneumococcal vaccine <65 Aged Out No longer eligible based on patient's age to complete this topic Insurance [facility] CHOICE PLUS [facility] HMO/PPO Address: [facility] [address] [place] [address] [facility] CHOICE PLUS [facility] HMO/PPO Address: [address] [address] [place] [address] [place] Advance Directives For more information, please contact: [phone] Documents on File Type Date Recorded Patient Pleating Supervisor Expl anation ADVANCE DIRECTIVE 08/18/2020 8:08 AM ADVANCE DIRECTIVE 02/27/2018 3:21 PM ADVANCE DIRECTIVE 08/01/2017 12:45 PM ADVANCE DIRECTIVE 08/01/2017 Advance Di rective Checklist Care Teams Fur Cleaner Relationship Specialty Start Date End Date Unknown, Notinfile PCP - General 05/01/24 Mariela Mcintyre MD [address] [place] [id number] 05/01/24 Norris Palumbo MD [address] [address] Surgeon Orthopedic Surgery 08/18/20
[2025-01-07 07:09] LABS: Varicella-Zoster Ab, IgG Reactive (Non Reactive)
== END 2025-01-06 15:28 | disposition home or self-care (01) ==
LOC: ANHLAB 15:28
PROVIDERS: PCP Student in an Organized Health Care Education/Training Program; Visit Provider Nurse Practitioner Family
DX: Z34.90 Encounter for supervision of normal pregnancy, unspecified, unspecified trimester (principal); Z3A.00 Weeks of gestation of pregnancy not specified
CPT/HCPCS: 36415; 84443; 86787; 86803; 86850

== ENCOUNTER 2025-03-01 16:13 | Outpatient (CLI) | payer OTHER, SELFPAY ==
[2025-03-01 16:51] VITALS: BP 121/71; PULSE 94
[2025-03-01 16:52] VITALS: BP 122/72; PULSE 95
[2025-03-01 17:00] VITALS: BP 111/66; PULSE 110
[2025-03-01 17:01] LABS: Add Urine Microscopic? NO; Appearance Urine Clear (Clear); Glucose Urine UA Negative (Negative); Hematocrit 35.6 % (37.0-47.0); Hemoglobin 12.2 g/dL (12.0-15.0); Immature Granulocyte Percent A 0.5 % (0-0.5); Leukocyte Esterase Ur Negative LEU/UL (Negative); Lymphocytes Absolute Auto 1.17 K/mm3 (0.9-3.2); Mean Corpuscular HGB Conc 34.3 g/dl (32-36); Mean Corpuscular Hemoglobin 30.5 pg (26-34); Mean Corpuscular Volume 89.0 fl (80-100); Nitrate Urine Negative (Negative); Nucleated Red Blood Cells Absolute Auto 0.000 K/mm3 (0.0-0.012); Nucleated Red Blood Cells Perc 0.0 % (0.0-0.2); Platelet Count Result 284 k/mm3 (150-375); Red Blood Count 4.00 M/mm3 (4.2-5.4); Specific Grav Ur 1.015 (1.001-1.035); White Blood Count 11.0 K/mm3 (4.5-10.0)
--- OUTSIDE RECORDS SUMMARY | 2025-03-01 17:14 | XMS_ITS | Clinical Summary ---
Author Organization [facility] Address [address] [place] [address] [place] [address] Care Team Providers Care Lineman A Class Name Role Phone Unavailable Primary Care Provider Unavailabl e Source Comments [facility],non-owned Affiliates and Associated Physician Practices is amultiple site organization consisting of ambulatory clinics and hospital sitesin [place], [place], [place] and [place]. This disclosure is being madepursuant to the Care Everywhere program and may not contain all information available regarding this patient. Last updated 17.[facility] Active Problems Problem Noted Date Diagnosed Date Encounter for ultrasound 10/30/2024 Estimated Date of Delivery Comme nts Yes 06/24/2025 Based on Ultraso und Encounters Date Type Department Care Team Description 12/17/2024 Telephone [facility] MATERNAL/ EVALUATION UNIT [address] [facility] [place] [address] Estrella Sears Appointment from Last 3 Months [...] DEPRESSION SCREENING 03/11/2024 COVID-19 VACCINE (1 - 2024-2 6 season) 2024 INFLUENZA VACCINE (#1) 2024 OB-ONE HOUR GLUCOSE 03/18/2025 OB-TDAP CURRENT 03/25/20252024, 10/30/2022 ZOSTER VACCINE (1 [...] over 60 yrs (No Doses Required) Completed Insurance
--- OUTSIDE RECORDS SUMMARY | 2025-03-01 17:14 | XMS_ITS | Clinical Summary ---
Author Organization [facility] Address [address] [place] [address] Care Team Providers Care Freight Trucker Name Role Phone Unknown, Notinfile Primary Care Provider Unavail able Mariela Mcintyre MD Unavailable [phone] Norris Palumbo MD Unavailable [phone] Allergies Active Allergy Reactions Criticality Noted [...] (05/18/2020): Added automatically from request for surgery [id number] Closed fracture of shaft of right femur [...] on file Legal Sex Female 4:56 AM ASSURANCE MANAGER INSURANCE Gender Identity Female 05/01/2018 10:26 AM ASSURANCE MANAGER INSURANCE Sexual Orientation Not on file Last Filed Vital Signs Vital Sign Reading Time Taken Comments Blood Pressure 114/60 05/11/2022 9:28 AM ASSURANCE MANAGER INSURANCE Pulse 68 05/11/2022 9:28 AM ASSURANCE MANAGER INSURANCE Temperature 36.7 C (98.1 F) 05/11/2022 9:28 AM ASSURANCE MANAGER INSURANCE Respiratory Rate 20 05/11/2022 9:28 AM ASSURANCE MANAGER INSURANCE Oxygen Saturation 99% 05/11/2022 9:28 AM ASSURANCE MANAGER INSURANCE Inhaled Oxygen Concentration - - Weight 73 kg (161 lb) 05/11/2022 9:28 AM ASSURANCE MANAGER INSURANCE Height 160 cm (5' 3) 05/11/2022 9:28 AM ASSURANCE MANAGER INSURANCE Body Mass Index 28.52 05/11/2022 9:28 AM ASSURANCE MANAGER INSURANCE Plan of Treatment Health Maintenance Due Date [...] patient's age to complete this topic Insurance [facility] CHOICE PLUS [facility] CHOICE PLUS Member Subscriber Plan / Payer (Ef fective 2024-Present) Name:Chepe Robinsn Relation to Subscriber:Self Name:Keri Robinsdavid Hilario Payer ID:[id number] (NAIC) Type:[facility] HMO/PPO Address: [place] [id number] [place] [id number] [place] Advance Directives For more information, please contact: [phone] Documents on File Type Date Recorded Patient Program Manager Slp Expl anation ADVANCE DIRECTIVE 08/18/2020 8:08 AM ADVANCE DIRECTIVE 02/27/2018 3:21 PM ADVANCE DIRECTIVE 08/01/2017 12:45 PM ADVANCE DIRECTIVE 08/01/2017 Advance Di rective Checklist Care Teams Freight Trucker Relationship Specialty Start Date End Date Unknown, Notinfile PCP - General 05/01/24 Mariela Mcintyre MD [address] [place] [id number] 05/01/24 Norris Palumbo MD [address] [address] Surgeon Orthopedic Surgery 08/18/20
--- OUTSIDE RECORDS SUMMARY | 2025-03-01 17:14 | XMS_ITS | Encounter Summary ---
Author Organization [facility] Address [address] [place] [address] Care Team Providers Care Iv Technician Name Role Phone Mariela Mcintyre MD Primary Care Provider [phone] MD Primary Care Provider + Encounter Details Date Type Department Care Team (Late st Contact Info) Description 08/16/2018 Abstract [facility] Conversion [address] [place] [address] , Generic Conversion, Social History Tobacco Use Types Packs/Day Years Used Date Smoking Tobacco: Never Assessed Comments Unknown Sex and Gender Information Value Date Recorded Sex Assigned at Female 06/03/2024 11:56 AM CDT Legal Sex Female 9:15 PM APPRENTICE PAINTER NECKTIES Gender Identity Female 06/04/2024 9:31 AM CDT Sexual Orientation Not on file documented as of this encounter Plan of Treatment Not on file documented as of this encounter Visit Diagnoses Not on filedocumented in this encounter Care Teams Iv Technician Relationship Specialty Start Date End Date Mariela Mcintyre MD [address] [place] [address] PCP - General PEDIATRICS 09/15/18 04/13/[address] MD [address] [address] PCP - General FAMILY PRACTICE 04/14/24 documented as of this encounter
--- OUTSIDE RECORDS SUMMARY | 2025-03-01 17:14 | XMS_ITS | Clinical Summary ---
Author Organization [facility] Address [facility] [place] [address] Care Team Providers Care Financial Center Manager Name Role Phone Devora Lane MD [...] syndrome 04/14/2024 Overview (04/14/2024): Seeing orthopedist in [place]. MIL is physical therapist. Migraines 04/14/2024 Overview (04/14/2024): Without aura. Seeing neurology but her neurologist is retiring.. About twice a month. Quilipta. Still deciding if its working. Topiramate and Nurtec were not effective for her in the past. Assessment & Plan (04/14/2024 3:46 PM BOBBIN DOFFER): Not controlled. Would like to see a new neurologist. Referral entered. Chronic migraine without aura 11/08/2023 Immunizations Immunization Administration Dates Next Due Afluria [...] your doctor or pharmacy? Never 06/04/2024 [facility] Utilities Answer Date Recorded In the past 12 months has e [employer], gas, oil, or water [employer] threatened to shut off services in your [...] declined 06/04/2024 How often do you attend rastafari or oriental orthodox serv ices? Patient declined 06/04/2024 Do you belong to any clubs o r organizations such as rastafari groups, unions, fraternal or athletic groups, or [...] Recorded Patient Health Questionnaire-2 Score 0 04/14/2024 [facility] Occupat ional [facility] - Occupational Stress Questionnaire Answer Date Recorded [...] time in the past 12 m [facility], were you homeless or living in a [place] (including now)? No 06/04/2024 Comments No Sex and Gender Information Value Date Recorded Sex Assigned at Female 06/03/2024 11:56 AM CDT Legal Sex Female 9:15 PM BOBBIN DOFFER Gender Identity Female 06/04/2024 9:31 AM CDT [...] 10/06/2024 8:57 AM CDT Plan of Treatment Health Maintenance Due Date [...] Meningococcal Vaccine Completed 10/26/2016, 014 PHQ-2 (Physician [place]) Completed 04/14/2024 Hepatitis A Vaccines Aged Out [...] patient's age to complete this topic Insurance [address] [address] [place] [address] Advance Directives * Full Code (Latest Code Status on File) Date Activated Date Inactivated Comments 06/03/2024 7:26 PM 06/04/2024 12:29 PM Care Teams Financial Center Manager Relationship Specialty Start Date End Date Devora Lane MD [address] [place] [address] PCP - General FAMILY PRACTICE 04/14/24
--- OUTSIDE RECORDS SUMMARY | 2025-03-01 17:14 | XMS_ITS | Encounter Summary ---
Author Organization [facility] Address [address] [place] [address] Care Team Providers Care Roll Reclaimer Name Role Phone Devora Lane MD Primary Care Provider + Encounter Details Date Type Department Care Team (Late st Contact Info) Description 04/20/2024 MyChart Message Enc [facility] Family Medicine - [place] [address] [place] [phone] MD [address] [place] [address] Labs Ordered from Orthopedic Surgeon Social [...] AM CDT Legal Sex Female 9:15 PM TELEMETRY MONITOR Gender Identity Female 06/04/2024 9:31 AM CDT Sexual Orientation Not on file documented as of this encounter Progress Notes * Shaista Wood MA - 04/20/2024 3:57 PM CST Pt is aware that she will have to get the ortho labs done separate. METRY MONITOR documented in this encounter Plan of Treatment Not on file documented as of this encounter Visit Diagnoses Not on filedocumented in this encounter Care Teams Roll Reclaimer Relationship Specialty Start Date End Date Devora Lane MD [address] [place] [address] PCP - General FAMILY PRACTICE 04/14/24 documented as of this encounter
--- OUTSIDE RECORDS SUMMARY | 2025-03-01 17:14 | XMS_ITS | Encounter Summary ---
Author Organization [facility] Address [address] [place] [address] Care Team Providers Care Rn Radiology Name Role Phone Devora Lane MD Primary Care Provider + Encounter Details Date Type Department Care Team (Late st Contact Info) Description 07/17/2024 MyChart Message Enc [facility] Family Medicine - [place] [address] [place] [address] MD [address] [place] [address] Follow up After ER Visit Social [...] from your doctor or pharmacy? Never 06/04/2024 [facility] Utilities Answer Date Recorded In the past 12 months has e [employer], gas, oil, or water [employer] threatened to shut off services in your [...] declined 06/04/2024 How often do you attend muslim or gnosticist serv ices? Patient declined 06/04/2024 Do you belong to any clubs o r organizations such as muslim groups, unions, fraternal or athletic groups, or [...] Recorded Patient Health Questionnaire-2 Score 0 04/14/2024 [facility] of Occupat ional Health - Occupational Stress [...] any time in the past [address] [facility], were you homeless or living in a long term (including now)? No 06/04/2024 Comments No Sex and Gender Information Value Date Recorded Sex Assigned at Female 06/03/2024 11:56 AM CDT Legal Sex Female 9:15 PM FILTER TIP CATCHER Gender Identity Female 06/04/2024 9:31 AM CDT [...] on filedocumented in this encounter Care Teams Rn Radiology Relationship Specialty Start Date End Date Devora Lane MD [address] [address] PCP - General FAMILY PRACTICE 04/14/24 documented as of this encounter
[2025-03-01 17:15] VITALS: BP 112/72; PULSE 108
[2025-03-01 17:25] LABS: Alanine Aminotransferase 24 U/L (6-35); Albumin Level 3.7 g/dL (3.5-5.1); Alkaline Phosphatase 92 U/L (38-126); Anion Gap 8 mmol/L (4-12); Aspartate Amino Transferase 29 U/L (14-36); Bilirubin,Total 0.4 mg/dL (0.2-1.3); Blood Urea Nitrogen 6 mg/dL (7-17); Calcium 9.5 mg/dL (8.4-10.2); Carbon Dioxide 22 mmol/L (22-30); Chloride 105 mmol/L (98-107); Estimated Glomerular Filt Rate > 60; Glucose 101 mg/dL (65-110); Potassium 3.6 mmol/L (3.4-5.0); Sodium 135 mmol/L (137-145); Total Protein 6.7 g/dL (6.3-8.2); Total Protein Urine Random 8 mg/dL; Ur Ttl Prot Creatinine Ratio 0.07 mg/mg (0-0.20); Uric Acid 3.3 mg/dL (2.5-7.5)
== END 2025-03-01 17:35 | disposition home or self-care (01) ==
LOC: ANHOBOP 16:20 → ANHOBPP 16:22
PROVIDERS: PCP Student in an Organized Health Care Education/Training Program; Visit Provider Obstetrics & Gynecology
DX: R03.0 Elevated blood-pressure reading, without diagnosis of hypertension (principal)
CPT/HCPCS: 36415; 80053; 81003; 82570; 84156; 84550; 85025; 99199